=== PATIENT | male | born 1960 | race Caucasian/White ===

== ENCOUNTER → 2016-11-17 | Outpatient (CLI) | payer MEDICARE, MEDICAID ==
--- NOTE | 2016-11-17 10:13 | MRI ---
EXAM DESCRIPTION: MRI of the cervical spine CLINICAL HISTORY: Neck pain, multiple sclerosis COMPARISON: None. TECHNIQUE: Multiplanar MRI of the cervical spine was performed without contrast. GENERAL Cervical vertebral body alignment is unremarkable.Vertebral body heights are maintained. The craniocervical and atlantoaxial junctions are unremarkable. No aggressive osseous lesion. C2-3 No significant findings. C3-4 Mild bilateral neural foraminal narrowing, left greater than right from uncovertebral joint hypertrophy. 2 mm broad-based posterior disc protrusion. The midline diameter of the spinal canal is narrowed to 9 mm. C4-5 Mild left and moderate right neural foraminal narrowing from facet and uncovertebral joint hypertrophy. There is a 3 mm posterior disc bulge with cord contact anteriorly. The midline diameter of the spinal canal is narrowed to 8 mm. C5-6 Asymmetric to the right broad-based posterior disc osteophyte complex. Minimal right anterior cord contact. Negative for myelomalacia. The midline diameter of the spinal canal is mildly narrowed to 9 mm. Severe right and mild left neural foraminal narrowing. C6-7 3- 4 mm broad-based posterior disc osteophyte complex with cord flattening noted. The midline diameter of the spinal canal is narrowed to 9 mm. Severe right and mild left neural foraminal narrowing. C7-T1 No significant findings. CORD AND INTRASPINAL There is abnormal cord signal noted within the beatriz, medulla, cervical spinal cord posterior to C2, C3 and C7. IMPRESSION: Given technique differences the demyelinating plaque seen within the cervical spine are unchanged when compared to prior. Multilevel neural foraminal and spinal canal narrowing noted from C3-4 through C6-7 as described above. There is cord contact noted by disc material at C4-5, C5-6 and C6-7. Electronically signed by: Nicolas Brady MD 11/17/2016 10:11
== END ==
LOC: MRI 08:07
PROVIDERS: ATTEND Psychiatry & Neurology Neurology
DX: M50.220 Other cervical disc displacement, mid-cervical region, unspecified level (principal); M62.40 Contracture of muscle, unspecified site; G81.10 Spastic hemiplegia affecting unspecified side; G35 Multiple sclerosis

== ENCOUNTER 2016-12-24 18:14 | Emergency (ER) | payer MEDICARE, MEDICAID ==
--- NOTE | 2016-12-24 19:18 | ED.PDOC ---
History of Present Illness - General Chief Complaint: Respiratory Problem Stated Complaint: difficulty breathing Time Seen by Provider: 12/24/16 19:13 Source: RN notes reviewed, Vital Signs reviewed, EMS notes reviewed Exam Limitations: clinical condition - has multiple sclerosis - History of Present Illness Initial Comments: EMS was called on this 56 y/o male patient at [facility] with history of advanced ms with difficulty breathing and fever [id number] initially Timing/Duration: 1-3 hours Severity: moderate Improving Factors: nothing Worsening Factors: nothing Associated Symptoms: cough Allergies/Adverse Reactions: Allergies Buspirone Allergy (Verified 03/23/16 14:19) Home Medications: Ambulatory Orders Albuterol Sulfate Nebs [Proventil Nebs] 2.5 mg INH QID PRN 03/08/16 Baclofen 10 mg PO TID 03/08/16 Celecoxib [Celebrex] 100 mg PO BEDTIME 03/08/16 Cetirizine HCl [Zyrtec Childrens Allergy] 10 mg PO PRN 03/08/16 Doxepin HCl (Sleep) [Silenor] 3 mg PO BEDTIME 03/08/16 Furosemide [Lasix] 40 mg PO DAILY 03/08/16 Guaifenesin [Mucinex] 600 mg PO Q12H PRN 03/08/16 HYDROcodone 10MG/APAP 325MG [Bartlett 10/325] 1 - 2 ea PO .Q4H PRN 03/08/16 HYDROcodone 10MG/APAP 325MG [Bartlett 10/325] 2 tab PO BEDTIME 03/08/16 Ibuprofen 1 - 2 mg PO Q6H PRN 03/08/16 Magnesium Hydroxide [Milk Of Magnesia] 400 mg PO PRN PRN 03/08/16 Ondansetron HCl [Zofran] 4 mg PO Q4H PRN 03/08/16 Polyethylene Glycol 3350 [Miralax] 1 pack PO DAILY 03/08/16 Potassium Chloride [Potassium Chloride ER] 8 meq PO DAILY 03/08/16 Prochlorperazine Maleate [Compazine Tab] 10 mg PO Q4H PRN 03/08/16 Solifenacin Succinate [Vesicare] 5 mg PO DAILY 03/08/16 Tamsulosin HCl 0.4 mg PO DAILY 03/08/16 Acetaminophen [Arthritis Pain] 1,300 mg PO Q4H PRN 03/23/16 Cyanocobalamin [Vitamin B12] 1,000 mcg SL DAILY 12/24/16 Dexlansoprazole [Dexilant] 30 mg PO DAILY 12/24/16 Folic Acid [(None)] 1 mg PO DAILY 12/24/16 Magnesium Hydroxide [Milk Of Magnesia] 30 ml PO .DAILY ON Monday12/24/16 Oseltamivir [Tamiflu] 75 mg PO BID #10 cap 12/24/16 Sulfamethoxazole-Trimethoprim [Bactrim Ds 800-160 mg] 1 tab PO BID #30 tab 12/24 Zolpidem Tartrate [Ambien Cr] 12.5 mg PO BEDTIME 12/24/16 Review of Systems - Review of Systems Constitutional: States: fever EENTM: States: no symptoms reported Respiratory: States: cough Cardiology: States: no symptoms reported Gastrointestinal/Abdominal: States: no symptoms reported Genitourinary: States: other - chronic indwelling catheter Musculoskeletal: States: no symptoms reported Skin: States: no symptoms reported Neurological: States: other - history of ms Endocrine: States: no symptoms reported Hematologic/Lymphatic: States: no symptoms reported Past Medical History (General) - Patient Medical History Hx Seizures: No Hx Stroke: No Hx Dementia: No Hx Asthma: No Hx of COPD: No Hx Cardiac Disorders: No Hx Congestive Heart Failure: No Hx Pacemaker: No Hx Hypertension: No Hx Diabetes: No Hx MRSA: Yes MRSA Source:: Wound Surgical History: other - right shoulder - Vaccination History Hx Influenza Vaccination: - unknown Hx Pneumococcal Vaccination: - unknown - Social History Hx Tobacco Use: - unknown Hx Chewing Tobacco Use: Yes Hx Alcohol Use: No Hx Substance Use: No Hx Depression: Yes Hx Physical Abuse: No Hx Emotional Abuse: No - Activities of Daily Living [facility]isted [facility] (if applicable):: [facility] Grooming Ability: Total Assistance Eating (Feeding) Ability: Maximum Assistance Toileting Ability: Total Assistance Additional ED Patient Information: Patient bed bound and on motorized wheelchair Family Medical History - Family History Father Family History: Unknown Living Status: Hx Family Cancer: Yes - colon-dad;breast-mom Hx Family;Other: Multiple sclerosis-cousin Physical Exam - Physical Exam General Appearance: No apparent distress, Other - somnolent Ears, Nose, Throat: hearing grossly normal, normal ENT inspection, normal pharynx Neck: non-tender, full range of motion, supple Respiratory: chest non-tender, no respiratory distress, no accessory muscle use , decreased breath sounds Cardiovascular/Chest: normal peripheral pulses, regular rate, rhythm, no edema, no gallop, no murmur Peripheral Pulses: radial,right: 2+, radial,left: 2+ Gastrointestinal/Abdominal: normal bowel sounds, non tender, soft, no organomegaly Back Exam: normal inspection, no CVA tenderness, no vertebral tenderness Extremity: normal range of motion, non-tender, no pedal edema, no calf tenderness Neurologic: motor weakness - left side from ms Skin Exam: normal color, warm/dry Lymphatic: no adenopathy Progress - Results/Orders Results/Orders: 12/24/16 18:51 Chest,1 View [RAD] Stat 12/24/16 19:00 EKG STAT 12/24/16 19:22 LACTIC ACID Stat Laboratory Results WBC 8.7 K/mm3 (4.8-10.8) 12/24/16 18:51 RBC 5.33 M/mm3 (4.70-6.10) 12/24/16 18:51 Hgb 14.3 gm/dL (14.0-18.0) 12/24/16 18:51 Hct 42.9 % (42.0-52.0) 12/24/16 18:51 MCV 80.4 fl (80.0-94.0) 12/24/16 18:51 MCH 26.8 pg (27.0-31.0) L 12/24/16 18:51 MCHC 33.4 g/dL (33.0-37.0) 12/24/16 18:51 RDW 18.0 % (11.5-14.5) H 12/24/16 18:51 Plt Count 147 K/mm3 (130-400) 12/24/16 18:51 MPV 8.7 fl (7.40-10.4) 12/24/16 18:51 Absolute Neuts (auto) 8.10 K/uL (1.8-6.8) H 12/24/16 18:51 Absolute Lymphs (auto) 0.40 K/uL (1.0-3.4) L 12/24/16 18:51 Absolute Monos (auto) 0.10 K/uL (0.2-0.8) L 12/24/16 18:51 Absolute Eos (auto) 0.10 K/uL (0.0-0.4) 12/24/16 18:51 Absolute Basos (auto) 0.00 K/uL (0.0-0.1) 12/24/16 18:51 Neutrophils % 93.1 % (42.0-78.0) H 12/24/16 18:51 Lymphocytes % 4.6 % (20.0-50.0) L 12/24/16 18:51 Monocytes % 0.8 % (2.0-9.0) L 12/24/16 18:51 Eosinophils % 1.3 % (1.0-5.0) 12/24/16 18:51 Basophils % 0.2 % (0.0-2.0) 12/24/16 18:51 Sodium 139 mmol/L (135-145) 12/24/16 18:51 Potassium 4.3 mmol/L (3.6-5.0) 12/24/16 18:51 Chloride 104 mmol/L (101-111) 12/24/16 18:51 Carbon Dioxide 25 mmol/L (21-31) 12/24/16 18:51 Anion Gap 14.3 (12-18) 12/24/16 18:51 BUN 20 mg/dL (7-18) H 12/24/16 18:51 Creatinine 0.71 mg/dL (0.6-1.3) 12/24/16 18:51 BUN/Creatinine Ratio 28.2 (10-20) H 12/24/16 18:51 Random Glucose 101 mg/dL (70-105) 12/24/16 18:51 Serum Osmolality 280.3 mOsm/L (275-295) 12/24/16 18:51 Calcium 9.0 mg/dL (8.4-10.2) 12/24/16 18:51 Total Bilirubin 1.5 mg/dL (0.2-1.0) H 12/24/16 18:51 AST 54 IU/L (10-42) H 12/24/16 18:51 ALT 69 IU/L (10-60) H 12/24/16 18:51 Alkaline Phosphatase 120 IU/L (42-121) 12/24/16 18:51 Serum Total Protein 7.7 gm/dL (6.4-8.2) 12/24/16 18:51 Albumin 4.3 g/dl (3.2-5.5) 12/24/16 18:51 Globulin 3.4 gm/dL (2.3-3.5) 12/24/16 18:51 Albumin/Globulin Ratio 1.3 (1.1-1.9) 12/24/16 18:51 - EKG/XRAY/CT EKG: Sinus, Tachy - hr-130/minute Departure - Departure Clinical Impression: Acute viral syndrome, UTI (urinary tract infection) due to urinary indwelling Gonzalez catheter, History of multiple sclerosis Time of Disposition: 23:32 Disposition: Discharge to Home or Self Care Condition: Fair Departure Forms: ED Discharge - Pt. Copy, Patient Portal Self Enrollment Referrals: Luigi Lucas MD [Primary Care Provider] - 1-2 Weeks Prescriptions: Sulfamethoxazole-Trimethoprim [Bactrim Ds 800-160 mg] 1 tab PO BID #30 tab Oseltamivir [Tamiflu] 75 mg PO BID #10 cap Home Medications: Ambulatory Orders Albuterol Sulfate Nebs [Proventil Nebs] 2.5 mg INH QID PRN 03/08/16 Baclofen 10 mg PO TID 03/08/16 Celecoxib [Celebrex] 100 mg PO BEDTIME 03/08/16 Cetirizine HCl [Zyrtec Childrens Allergy] 10 mg PO PRN 03/08/16 Doxepin HCl (Sleep) [Silenor] 3 mg PO BEDTIME 03/08/16 Furosemide [Lasix] 40 mg PO DAILY 03/08/16 Guaifenesin [Mucinex] 600 mg PO Q12H PRN 03/08/16 HYDROcodone 10MG/APAP 325MG [Bartlett 10/325] 1 - 2 ea PO .Q4H PRN 03/08/16 HYDROcodone 10MG/APAP 325MG [Bartlett 10/325] 2 tab PO BEDTIME 03/08/16 Ibuprofen 1 - 2 mg PO Q6H PRN 03/08/16 Magnesium Hydroxide [Milk Of Magnesia] 400 mg PO PRN PRN 03/08/16 Ondansetron HCl [Zofran] 4 mg PO Q4H PRN 03/08/16 Polyethylene Glycol 3350 [Miralax] 1 pack PO DAILY 03/08/16 Potassium Chloride [Potassium Chloride ER] 8 meq PO DAILY 03/08/16 Prochlorperazine Maleate [Compazine Tab] 10 mg PO Q4H PRN 03/08/16 Solifenacin Succinate [Vesicare] 5 mg PO DAILY 03/08/16 Tamsulosin HCl 0.4 mg PO DAILY 03/08/16 Acetaminophen [Arthritis Pain] 1,300 mg PO Q4H PRN 03/23/16 Cyanocobalamin [Vitamin B12] 1,000 mcg SL DAILY 12/24/16 Dexlansoprazole [Dexilant] 30 mg PO DAILY 12/24/16 Folic Acid [(None)] 1 mg PO DAILY 12/24/16 Magnesium Hydroxide [Milk Of Magnesia] 30 ml PO .DAILY ON Monday12/24/16 Oseltamivir [Tamiflu] 75 mg PO BID #10 cap 12/24/16 Sulfamethoxazole-Trimethoprim [Bactrim Ds 800-160 mg] 1 tab PO BID #30 tab 12/24 Zolpidem Tartrate [Ambien Cr] 12.5 mg PO BEDTIME 12/24/16 Additional Instructions: RETURN TO EMERGENCY ROOM NEEDED
[2016-12-24] MEDS ORDERED: SODIUM CHLORIDE 0.9% 1000ML 1,000 ML IVS PRN (19:24)
[2016-12-24 19:47] VITALS: O2SAT 95
--- NOTE | 2016-12-24 21:11 | RAD ---
EXAM DESCRIPTION: Chest,1 View CLINICAL HISTORY: 56 years Male fever COMPARISON: None. FINDINGS: The patient is tilted slightly towards the right.The cardiomediastinal silhouette appears unremarkable. Mild atelectasis or infiltrate at the right lung base.No pleural effusions.No pneumothorax. IMPRESSION: Mild atelectasis or infiltrate at the right lung base Electronically signed by: Eduard Hong MD 12/24/2016 7:51 PM [employer]
[2016-12-24] MEDS ORDERED: OSELTAMIVIR 75 MG CAP PO ONE (21:18)
[2016-12-24] MEDS ORDERED: MEROPENEM 500 MG in SODIUM CHL 0.9% 50ML MIN-BAG+ 50 ML IVPB ONE (21:31)
[2016-12-24] MEDS ORDERED: MEROPENEM 500 MG VIAL IVPB ONE (22:15)
[2016-12-24] MEDS ORDERED: SODIUM CHL 0.9% 50ML MIN-BAG+ 50 ML IVPB ONE (22:15)
[2016-12-25 02:22] VITALS: BP 114/55; TEMP 99.4
--- NOTE | 2017-01-04 13:44 | RAD ---
EXAM DESCRIPTION: Chest,1 View CLINICAL HISTORY: 56 years Male fever COMPARISON: None. FINDINGS: The patient is tilted slightly towards the right.The cardiomediastinal silhouette appears unremarkable. Mild atelectasis or infiltrate at the right lung base.No pleural effusions.No pneumothorax. IMPRESSION: Mild atelectasis or infiltrate at the right lung base Electronically signed by: Eduard Hong MD 12/24/2016 7:51 PM [employer]
--- NOTE | 2017-01-09 00:02 | RAD ---
EXAM DESCRIPTION: Chest,1 View CLINICAL HISTORY: 56 years Male fever COMPARISON: None. FINDINGS: The patient is tilted slightly towards the right.The cardiomediastinal silhouette appears unremarkable. Mild atelectasis or infiltrate at the right lung base.No pleural effusions.No pneumothorax. IMPRESSION: Mild atelectasis or infiltrate at the right lung base Electronically signed by: Eduard Hong MD 12/24/2016 7:51 PM [employer]
== END 2016-12-24 23:55 | disposition home or self-care (01) ==
LOC: ER 18:14
DX: T83.518A Infection and inflammatory reaction due to other urinary catheter, initial encounter (principal); B34.9 Viral infection, unspecified; F32.9 Major depressive disorder, single episode, unspecified; G35 Multiple sclerosis; Z88.8 Allergy status to other drugs, medicaments and biological substances; Z79.899 Other long term (current) drug therapy; Z86.14 Personal history of Methicillin resistant Staphylococcus aureus infection; Z87.891 Personal history of nicotine dependence
CPT/HCPCS: 71010; 80053; 81001; 83605; 85025; 87086; 87088; 87186; 87502; 93005; J2185; J7030; J7050

== ENCOUNTER → 2017-01-17 | Outpatient (CLI) | payer MEDICARE, OTHER | END | disposition home or self-care (01) | LOC: GMAM 11:18 | PROVIDERS: ATTEND Family Medicine | DX: M25.579 Pain in unspecified ankle and joints of unspecified foot (principal) ==

== ENCOUNTER → 2017-01-23 | Outpatient (CLI) | payer MEDICARE, MEDICAID ==
--- NOTE | 2017-01-23 09:50 | MRI ---
Study: MRI of the Left Foot. Indication: FOOT PAIN Technique: Multiplanar, multi sequence MRI of the left foot was obtained without intravenous contrast. Comparison: Radiographs January 17, 2017. Findings: Moderate subcutaneous edema dorsum of the forefoot and midfoot with a suspected septated hematoma superficial to the fourth and fifth metatarsal shafts measuring up to 28 mm transverse by 11 mm craniocaudal by 20 mm AP. There is a large contusion of the lateral margin of the cuboid with mild trabecular fracturing. Mild myositis throughout the deep plantar musculature of the forefoot. Mild tendinosis. Peroneus brevis tendinosis with mild longitudinal fissuring distally. No transection. Remaining visualized distal portions of the flexor and extensor tendons as well as the plantar fascia intact. Lisfranc ligament intact. Moderate osteoarthritis first MTP joint with mild changes first IP joint. Remote/healed fracture third metatarsal shaft/neck. Impression: Contusion/trabecular fracturing of the lateral margin of the cuboid without displaced fracture. Subcutaneous edema of the foot with small subcutaneous hematoma laterally. Additional findings as above. Electronically signed by: Donovan Quiroga MD 01/23/2017 9:48 AM CDT
== END ==
LOC: MRI 08:20
PROVIDERS: ATTEND Family Medicine
DX: M79.672 Pain in left foot (principal); S90.32XA Contusion of left foot, initial encounter; M19.072 Primary osteoarthritis, left ankle and foot

== ENCOUNTER → 2017-02-06 | Outpatient (CLI) | payer MEDICARE, MEDICAID ==
--- NOTE | 2017-02-06 10:01 | RAD ---
EXAM DESCRIPTION: Foot,Left 3 Views CLINICAL HISTORY: 56 years Male, PAIN IN LEFT FOOT COMPARISON: None. FINDINGS: 3 views of the left foot show no acute fracture or malalignment. There is an old healed third metatarsal fracture. No radiopaque foreign body or soft tissue gas. The joint spaces are fairly well-maintained. Best seen on the AP view is a small lytic lesion in the medial cuneiform adjacent to the first TMT joint, nonspecific. IMPRESSION: Old healed third metatarsal fracture, but no acute left foot abnormality. Small lytic lesion in the medial cuneiform, nonspecific. Although atypical location, the possibility of gout related arthritis should be considered. Electronically signed by: Sukumar Engle MD 02/06/2017 10:00 AM CDT
== END | disposition home or self-care (01) ==
LOC: RAD 07:58
PROVIDERS: ATTEND Orthopaedic Surgery
DX: M79.672 Pain in left foot (principal)

== ENCOUNTER → 2017-02-27 | Outpatient (CLI) | payer MEDICARE, MEDICAID | END | disposition home or self-care (01) | LOC: GMAM 17:22 | PROVIDERS: ATTEND Family Medicine | DX: D53.9 Nutritional anemia, unspecified (principal) ==

== ENCOUNTER → 2017-03-23 | Outpatient (CLI) | payer MEDICARE, OTHER | END | disposition home or self-care (01) | LOC: GMAM 18:12 | PROVIDERS: ATTEND Family Medicine | DX: M06.9 Rheumatoid arthritis, unspecified (principal) ==

== ENCOUNTER → 2017-09-12 | Outpatient (CLI) | payer MEDICARE, OTHER | LOC: GMAM 16:42 | PROVIDERS: ATTEND Family Medicine | DX: R82.90 Unspecified abnormal findings in urine (principal) ==

== ENCOUNTER → 2017-09-25 | Outpatient (CLI) | payer MEDICARE, OTHER | END | disposition home or self-care (01) | LOC: YCFC.O 08:55 | PROVIDERS: ATTEND Anesthesiology Pain Medicine | DX: Z79.891 Long term (current) use of opiate analgesic (principal) ==

== ENCOUNTER → 2017-10-02 | Outpatient (CLI) | payer MEDICARE, OTHER ==
--- NOTE | 2017-10-03 09:47 | MRI ---
Study: MRI of the Right Shoulder. Indication: SHOULDER PAIN Technique: Multiplanar, multi sequence MRI of the right shoulder was obtained without intravenous contrast. Comparison: July 23, 2013. Findings: Mild to moderate hypertrophic AC joint osteoarthritis. Mild type II acromion with mild lateral downsloping. Trace subacromial/subdeltoid bursal fluid. Supraspinatus and infraspinatus tendinosis noted with full-thickness tearing of the anterior two thirds of the supraspinatus tendon insertion. Involved area measures 12 mm AP by 12 mm transverse. Subscapularis and teres minor tendons intact. Rotator cuff musculature normal without atrophy, fatty infiltration, or intramuscular edema. Long head biceps tendon intact. Circumferential labral truncation noted. Undersurface tearing throughout the base of the superior labrum noted. No acute fracture or advanced glenohumeral joint osteoarthritis. Impression: Supraspinatus and infraspinatus tendinosis with full-thickness tearing of the anterior two thirds of the infraspinatus tendon insertion. Circumferential labral truncation. Undersurface tearing throughout the base of the superior labrum noted. Mild to moderate hypertrophic AC joint osteoarthritis. Electronically signed by: Donovan Quiroga MD 10/03/2017 9:46 AM [facility]
== END | disposition home or self-care (01) ==
LOC: MRI 13:14
PROVIDERS: ATTEND Family Medicine
DX: M25.511 Pain in right shoulder (principal)

== ENCOUNTER → 2017-10-16 | Outpatient (CLI) | payer MEDICARE, OTHER ==
--- NOTE | 2017-10-16 14:21 | RAD ---
EXAM DESCRIPTION: Right shoulder, 4 radiographs CLINICAL HISTORY: PAIN FINDINGS/ IMPRESSION: Mild acromioclavicular osteoarthritis. No separation No fracture or focal osteochondral lesion. No advanced glenohumeral osteoarthritis. Normal mineralization Electronically signed by: Luigi Edwards MD 10/16/2017 2:20 PM [facility]
== END | disposition home or self-care (01) ==
LOC: RAD 08:42
PROVIDERS: ATTEND Orthopaedic Surgery
DX: M25.511 Pain in right shoulder (principal)

== ENCOUNTER 2017-10-29 12:10 | Inpatient (IN) | payer MEDICARE, OTHER ==
[2017-10-29] MEDS ORDERED: CEFEPIME 2 GM VIAL IVPB ONE (12:11)
[2017-10-29] MEDS ORDERED: CEFEPIME 2 GM in SODIUM CHL 0.9% 50ML MIN-BAG+ 50 ML IVPB ONE (13:19)
[2017-10-29] MEDS ORDERED: SODIUM CHLORIDE 0.9% 1000ML 1,000 ML IVS ONE (13:19)
[2017-10-29] MEDS ORDERED: predniSONE 20 MG TAB PO ONE (13:19)
[2017-10-29] MEDS ORDERED: IBUPROFEN 200 MG TAB PO ONE (13:20)
--- NOTE | 2017-10-29 13:38 | RAD ---
Procedure: XR CHEST 1 VIEW Exam Date: 10/29/2017 12:28 PM [employer] Ordering Provider: Daquan Lucas Clinical Indication: Tachycardia, hypotension Comparison: None Findings: There is slight asymmetric volume loss in the right lung and right basilar subsegmental atelectasis. No pleural effusion or pneumothorax is present. The heart size is normal. Impression: Right lung volume loss and right basilar subsegmental atelectasis. Electronically signed by: Carlo Hankins MD 10/29/2017 1:37 PM [employer]
[2017-10-29] MEDS ORDERED: SODIUM CHL 0.9% 100ML MINI-BAG 0 ML IVPB ONE (13:41)
[2017-10-29] MEDS ORDERED: SODIUM CHL 0.9% 50ML MIN-BAG+ 50 ML IVPB ONE (13:42)
--- NOTE | 2017-10-29 14:03 | ED.PDOC ---
History of Present Illness - General Chief Complaint: Blood Pressure Problem Stated Complaint: low BP,tachycardic Time Seen by Provider: 10/29/17 12:28 Source: patient, family Exam Limitations: no limitations - History of Present Illness Initial Comments: the patient is a 57-year-old male presenting to the emergency room secondary to a feeling of fatigue and weakness starting overnight. He is not short of breath. He is having generalized weakness. He feels diaphoretic. He is having some mild nausea but no vomiting. He does have a long-standing indwelling Gonzalez catheter. He does have a history of multiple sclerosis with chronic changes. He also does have a history of some chronic hyperbilirubinemia due to a questionable source. The patient was found to be tachycardic in the 130s to 140s along with mildly hypotensive at 90s over 50s. Blood pressures have improved with a liter of IV fluids given by EMS. The patient has a low-grade fever. No chest pain or shortness of breath. No new leg swelling. He also has a history of chronic elevated d-dimer. Timing/Duration: unsure Severity: moderate Improving Factors: nothing Worsening Factors: nothing Associated Symptoms: diaphoresis, fever/chills, loss of appetite, malaise, weakness Allergies/Adverse Reactions: Allergies Buspirone Allergy (Verified 03/23/16 14:19) Home Medications: Ambulatory Orders Albuterol Sulfate Nebs [Proventil Nebs] 2.5 mg INH QID PRN 03/08/16 Baclofen 10 mg PO TID 03/08/16 Celecoxib [Celebrex] 200 mg PO BEDTIME 03/08/16 Cetirizine HCl [Zyrtec Childrens Allergy] 10 mg PO PRN 03/08/16 Doxepin HCl (Sleep) [Silenor] 3 mg PO BEDTIME 03/08/16 Furosemide [Lasix] 40 mg PO DAILY 03/08/16 Guaifenesin [Mucinex] 600 mg PO Q12H PRN 03/08/16 HYDROcodone 10MG/APAP 325MG [Burns 10/325] 1 - 2 ea PO .Q4H PRN 03/08/16 HYDROcodone 10MG/APAP 325MG [Burns 10/325] 2 tab PO DAILY 03/08/16 Ibuprofen 1 - 2 mg PO Q6H PRN 03/08/16 Magnesium Hydroxide [Milk Of Magnesia] 400 mg PO PRN PRN 03/08/16 Ondansetron HCl [Zofran] 4 mg PO Q4H PRN 03/08/16 Polyethylene Glycol 3350 [Miralax] 1 pack PO DAILY 03/08/16 Potassium Chloride [Potassium Chloride ER] 8 meq PO DAILY 03/08/16 Solifenacin Succinate [Vesicare] 5 mg PO DAILY 03/08/16 Tamsulosin HCl 0.4 mg PO DAILY 03/08/16 Acetaminophen [Arthritis Pain] 1,300 mg PO Q4H PRN 03/23/16 Cyanocobalamin [Vitamin B12] 1,000 mcg SL DAILY 12/24/16 Dexlansoprazole [Dexilant] 30 mg PO DAILY 12/24/16 Folic Acid [(None)] 1 mg PO DAILY 12/24/16 Magnesium Hydroxide [Milk Of Magnesia] 30 ml PO .DAILY ON Monday12/24/16 Cyclobenzaprine HCl 10 mg PO TID PRN 10/29/17 Morphine Sulfate [Morphine Sulfate ER] 15 mg PO DAILY 10/29/17 Review of Systems - Review of Systems Constitutional: States: fever, malaise, weakness EENTM: States: no symptoms reported Respiratory: States: short of breath - ainly with exertion Cardiology: States: no symptoms reported Gastrointestinal/Abdominal: States: nausea - mild Genitourinary: States: other - discomfort from his chronic indwelling Gonzalez catheter Musculoskeletal: States: muscle stiffness Skin: States: no symptoms reported Neurological: States: other - hronic changes only Endocrine: States: no symptoms reported All other Systems: No Change from Baseline Past Medical History (General) - Patient Medical History Hx Seizures: No Hx Stroke: No Hx Dementia: No Hx Asthma: No Hx of COPD: No Hx Cardiac Disorders: No Hx Congestive Heart Failure: No Hx Pacemaker: No Hx Hypertension: No Hx Diabetes: No Hx MRSA: Yes MRSA Source:: Wound Surgical History: no surgical history - Vaccination History Hx Influenza Vaccination: - unknown Hx Pneumococcal Vaccination: Yes - Social History Hx Tobacco Use: No Hx Chewing Tobacco Use: Yes Hx Alcohol Use: No Hx Substance Use: No Hx Depression: Yes Hx Physical Abuse: No Hx Emotional Abuse: No - Activities of Daily Living Jail/Assisted Living (if applicable):: [facility] Family Medical History - Family History Father Family History: Unknown Living Status: Hx Family Cancer: Yes - colon-dad;breast-mom Hx Family;Other: Multiple sclerosis-cousin Physical Exam - Physical Exam General Appearance: Alert, Frail, Other - mildly diaphoretic Eye Exam: bilateral normal - poor eye contact Ears, Nose, Throat: hearing grossly normal, normal ENT inspection, normal pharynx Neck: full range of motion, supple Respiratory: lungs clear, normal breath sounds, no respiratory distress, no accessory muscle use, other - mildly tachypnea with a fever Cardiovascular/Chest: normal peripheral pulses, no edema, tachycardia - inus tachycardia based on telemetry monitoring Peripheral Pulses: radial,right: 2+, radial,left: 2+, dorsalis pedis,right: 2+, dorsalis pedis,left: 2+ Gastrointestinal/Abdominal: non tender, soft Rectal Exam: deferred Back Exam: no CVA tenderness, no vertebral tenderness Extremity: normal capillary refill, pedal edema - trace to bilateral lower extremities, other - ultiple chronic changes from his MS and reported strokes. Primarily left sided weakness. He does seem to have difficulty controlling his posture as well. Neurologic: support services tech II-XII nml as tested, alert, oriented x 3 Skin Exam: pallor Comments: Vital Signs - 24 hr 10/29/17 10/29/17 12:27 13:10 Temperature 100.1 F H Pulse Rate [ 135 H 112 H Left Brachial] Respiratory 20 17 Rate Blood Pressure 120/64 108/65 [Left Arm] O2 Sat by Pulse 95 96 Oximetry Progress - Progress Progress: 10/29/17 14:07 the patient is a 57-year-old male presenting to emergency room secondary to what is most likely early urosepsis. He has had multiple recurrent infections due to an indwelling Gonzalez catheter. His last culture grew out Proteus and he has been started on cefepime based on the culture result. He has received a liter of IV fluids already. His heart rate has improved. He has also received some ibuprofen for the fever. He received 40 mg of prednisone orally for the possibility of sepsis as well as his history of multiple sclerosis. He does have a mildly elevated bilirubin which is apparently a chronic finding with this patient. He also has a chronically elevated d-dimer again which is a long-standing finding with this patient. No new evidence of any shortness of breath. No new leg swelling or pain. He received a CT angiogram a year or 2 ago secondary to the elevated d-dimer and it was negative. If clinical condition changes or fails to improve, then a repeat can be done. flu test is negative. No other source of infection has been found. - Results/Orders Results/Orders: Laboratory Tests 10/29/17 10/29/17 10/29/17 12:42 12:48 12:48 WBC 11.3 H RBC 5.45 Hgb 14.6 Hct 43.5 MCV 79.9 L MCH 26.7 L MCHC 33.6 RDW 17.6 H Plt Count 166 MPV 8.3 Absolute Neuts (auto) 11.00 H Absolute Lymphs (auto) 0.20 L Absolute Monos (auto) 0.10 L Absolute Eos (auto) 0.00 Absolute Basos (auto) 0.00 Neutrophils % 97.5 H Lymphocytes % 1.4 L Monocytes % 0.7 L Eosinophils % 0.1 L Basophils % 0.3 D-Dimer, Quantitative Sodium 140 Potassium 3.6 Chloride 107 Carbon Dioxide 23 Anion Gap 13.6 BUN 21 H Creatinine 0.64 BUN/Creatinine Ratio 32.8 H Random Glucose 110 H Serum Osmolality 283.0 Lactic Acid Calcium 8.7 Magnesium 1.8 Total Bilirubin 3.1 H* AST 31 ALT 45 Alkaline Phosphatase 120 Creatine Kinase 53 CK-MB (CK-2) 1.2 CK-MB (CK-2) % Not Reportable Troponin I < 0.02 B-Natriuretic Peptide 5.7 Serum Total Protein 7.3 Albumin 4.2 Globulin 3.1 Albumin/Globulin Ratio 1.4 Urine Color Yellow Urine Appearance Cloudy Urine pH 5.5 Ur Specific [place] 1.015 Urine Protein Negative Urine Glucose (UA) Negative Urine Ketones Negative Urine Blood Moderate H Urine Nitrite Positive H Urine Bilirubin Small H Urine Urobilinogen 2.0 H Ur Leukocyte Esterase Small H Urine RBC 10-20 H Urine WBC Tntc H Ur Epithelial Cells 0 Urine Bacteria 4+ H Urine Mucus Small 10/29/17 10/29/17 12:48 13:23 WBC RBC Hgb Hct MCV MCH MCHC RDW Plt Count MPV Absolute Neuts (auto) Absolute Lymphs (auto) Absolute Monos (auto) Absolute Eos (auto) Absolute Basos (auto) Neutrophils % Lymphocytes % Monocytes % Eosinophils % Basophils % D-Dimer, Quantitative 983 H* Sodium Potassium Chloride Carbon Dioxide Anion Gap BUN Creatinine BUN/Creatinine Ratio Random Glucose Serum Osmolality Lactic Acid 1.5 Calcium Magnesium Total Bilirubin AST ALT Alkaline Phosphatase Creatine Kinase CK-MB (CK-2) CK-MB (CK-2) % Troponin I B-Natriuretic Peptide Serum Total Protein Albumin Globulin Albumin/Globulin Ratio Urine Color Urine Appearance Urine pH Ur Specific [place] Urine Protein Urine Glucose (UA) Urine Ketones Urine Blood Urine Nitrite Urine Bilirubin Urine Urobilinogen Ur Leukocyte Esterase Urine RBC Urine WBC Ur Epithelial Cells Urine Bacteria Urine Mucus EKG shows sinus tachycardia rate 120 bpm. Normal axis. Normal R-wave progression. Normal QT interval. No definitive ST segment changes concerning for ischemia. Chest x-ray shows some rotation but no definitive infiltrate. No pneumothorax. No evidence of fluid overload. Departure - Departure Clinical Impression: UTI (urinary tract infection) due to urinary indwelling Gonzalez catheter Qualifiers: Indwelling urinary catheter type: indwelling urethral catheter Encounter type: initial encounter Qualified Code(s): T83.511A - Infection and inflammatory reaction due to indwelling urethral catheter, initial encounter; N39.0 - Urinary tract infection, site not specified Sepsis Qualifiers: Sepsis type: sepsis due to unspecified organism Qualified Code(s): A41.9 - Sepsis, unspecified organism Disposition: Admit Patient Referrals: Luigi Lucas MD [Primary Care Provider] - 1-2 Weeks Home Medications: Ambulatory Orders Albuterol Sulfate Nebs [Proventil Nebs] 2.5 mg INH QID PRN 03/08/16 Baclofen 10 mg PO TID 03/08/16 Celecoxib [Celebrex] 200 mg PO BEDTIME 03/08/16 Cetirizine HCl [Zyrtec Childrens Allergy] 10 mg PO PRN 03/08/16 Doxepin HCl (Sleep) [Silenor] 3 mg PO BEDTIME 03/08/16 Furosemide [Lasix] 40 mg PO DAILY 03/08/16 Guaifenesin [Mucinex] 600 mg PO Q12H PRN 03/08/16 HYDROcodone 10MG/APAP 325MG [Burns 10/325] 1 - 2 ea PO .Q4H PRN 03/08/16 HYDROcodone 10MG/APAP 325MG [Burns 10/325] 2 tab PO DAILY 03/08/16 Ibuprofen 1 - 2 mg PO Q6H PRN 03/08/16 Magnesium Hydroxide [Milk Of Magnesia] 400 mg PO PRN PRN 03/08/16 Ondansetron HCl [Zofran] 4 mg PO Q4H PRN 03/08/16 Polyethylene Glycol 3350 [Miralax] 1 pack PO DAILY 03/08/16 Potassium Chloride [Potassium Chloride ER] 8 meq PO DAILY 03/08/16 Solifenacin Succinate [Vesicare] 5 mg PO DAILY 03/08/16 Tamsulosin HCl 0.4 mg PO DAILY 03/08/16 Acetaminophen [Arthritis Pain] 1,300 mg PO Q4H PRN 03/23/16 Cyanocobalamin [Vitamin B12] 1,000 mcg SL DAILY 12/24/16 Dexlansoprazole [Dexilant] 30 mg PO DAILY 12/24/16 Folic Acid [(None)] 1 mg PO DAILY 12/24/16 Magnesium Hydroxide [Milk Of Magnesia] 30 ml PO .DAILY ON Monday12/24/16 Cyclobenzaprine HCl 10 mg PO TID PRN 10/29/17 Morphine Sulfate [Morphine Sulfate ER] 15 mg PO DAILY 10/29/17 Decision To Admit - Decistion To Admit Decision to Admit Reason: Medical Nature Decision to Admit Date: 10/29/17 Decision to Admit Time: 14:11
--- NOTE | 2017-10-29 15:10 | HP ---
SUPERVISING PHYSICIAN: Elton Jasso MD CHIEF COMPLAINT: Blood pressure problems, low blood pressure and tachycardia. HISTORY OF PRESENT ILLNESS: Mr. Phillips is a 57-year-old, male who presented to the Emergency Room secondary to feeling fatigue and weakness that started overnight. He is not short of breath. He is having generalized weakness and feeling diaphoretic. He is having some mild nausea with no vomiting. He does have a longstanding indwelling Gonzalez catheter. He does have a history of multiple sclerosis with chronic changes. He also does have a history of some chronic hyperbilirubinemia due to questionable sources. In the Emergency Room, the patient was tachycardic running in rates 130 to 140s and mildly hypotensive with systolic pressures 90s and diastolics in the 50s. After a liter of IV fluids in the Emergency Room, the blood pressure did improve as well as the tachycardia. The patient had a low grade fever. He denied chest pain, but did have some shortness of breath. He denies new leg swelling and states that he also had a history of a chronic elevated D-dimer. PAST MEDICAL HISTORY: 1. Congestive heart failure, unknown etiology. 2. Benign prostatic hypertrophy. 3. Multiple pressure sores. 4. Constipation. 5. Chronic insomnia. 6. Muscular sclerosis. 7. Cerebrovascular accident. 8. Depression. 9. Elevated liver function tests. PAST SURGICAL HISTORY: 1. Cholecystectomy. 2. I&D of elbow for bursitis. CURRENT MEDICATIONS: 1. Albuterol sulfated nebulized 2.5 mg inhaled q.i.d. p.r.n. 2. Baclofen 10 mg p.o. t.i.d. 3. Celebrex 20 mg p.o. at bedtime. 4. Zyrtec 10 mg p.o. p.r.n. 5. Doxepin 3 mg p.o. at bedtime. 6. Lasix 40 mg p.o. daily. 7. Guaifenesin 600 mg p.o. q.12h. p.r.n. 8. Hydrocodone 10 mg 1 to 2 each p.o. q.4h. p.r.n. 9. Hydrocodone 10 mg/325 mg 2 p.o. daily. 10. Ibuprofen 200 to 400 mg p.o. q.6h. p.r.n. 11. Milk of Magnesia 400 mg p.o. p.r.n. 12. Zofran 4 mg p.o. q.4h. p.r.n. 13. MiraLAX 17 grams p.o. daily. 14. Potassium chloride 8 mEq p.o. daily. 15. VESIcare 5 mg p.o. daily. 16. Tamsulosin 0.4 mg p.o. daily. 17. Acetaminophen 1000 mg p.o. q.4h. p.r.n. 18. Vitamin B12 1000 mcg sublingual daily. 19. Dexilant 30 mg p.o. daily. 20. Folic acid 1 mg p.o. daily. 21. Cyclobenzaprine 10 mg p.o. t.i.d. p.r.n. 22. Morphine sulfate 15 mg p.o. daily. ALLERGIES: NO KNOWN ALLERGIES. SOCIAL HISTORY: He is disabled. He lives at [facility]. He denies alcohol, tobacco or illicit drug use. He is . REVIEW OF SYSTEMS: CONSTITUTIONAL: Fever, malaise, weakness. EENT: No symptoms reported. RESPIRATORY: Shortness of breath, mainly with exertion. CARDIOVASCULAR: No symptoms reported. GASTROINTESTINAL: Nausea, mild. No diarrhea, constipation or abdominal pain. GENITOURINARY: Discomfort from his chronic indwelling Gonzalez catheter. MUSCULOSKELETAL: Muscle stiffness. SKIN: No symptoms reported. NEUROLOGIC: Chronic changes only. ENDOCRINE: No symptoms reported. PHYSICAL EXAMINATION: VITAL SIGNS: Temperature 97.9, temporal. Pulse 97. Blood pressure 111/67. Respiratory rate 18. Oxygen saturation 97% on room air. GENERAL: Alert, frail, mildly diaphoretic. HEENT: Pupils are equal, round, and reactive to light. Extraocular movements are intact and full. Gross hearing is normal. Normal oropharynx. NECK: Full range of motion. Soft, supple. No lymphadenopathy. RESPIRATORY: Respiratory effort is even and unlabored. Breath sounds are clear to auscultation bilaterally with no rales, rhonchi or wheezing. CARDIOVASCULAR: Normal S1, S2. Regular rate and rhythm. No murmurs, clicks or rubs. No edema noted. Peripheral pulses are 2+, radial and dorsalis pedis bilaterally. GASTROINTESTINAL: Abdomen soft, nontender. Bowel sounds active in all 4 quadrants. No masses palpated. EXTREMITIES: Normal capillary refill. There is mild pedal edema bilaterally. He has multiple chronic changes from the MS and reported strokes, primary left sided weakness. He does have some difficulty controlling his posture as well. NEUROLOGIC: He is alert and oriented times three. Mood and affect are normal. SKIN: Pale. He does have bed sores on his buttocks, stage 2. LABORATORY: WBC 11.3, hemoglobin 14.6, hematocrit 43.5, platelet count 166. D- dimer 983. Sodium 140, potassium 3.6, chloride 107, carbon dioxide 23, BUN 21, creatinine 0.64. Glucose 110, calcium 8.7, magnesium 1.8, total bilirubin 3.1, AST 31, ALT 45, alkaline phosphatase 120. CK 53, CK-MB 1.2, troponin I less than 0.02. BNP 5.7. Total protein 7.3, albumin 4.2. Urine is yellow, appearance cloudy, pH 5.5, specific gravity 1.015, protein negative, glucose negative, ketones negative, blood moderate, nitrites positive, bilirubin small, urobilinogen 2.0, leukocyte esterase small, RBCs 10 to 20, WBCs too numerous to count, epithelial cells 0, bacteria 4+, mucus small amount. MICROBIOLOGY: Blood cultures were drawn and sent to the lab. Urine culture is pending. Nasal swab for MRSA was done in the Emergency Room. ASSESSMENT: 1. Urinary tract infection due to indwelling Gonzalez catheter. 2. Urosepsis due to unspecific organism. 3. History of multiple sclerosis, primary left upper and left lower extremities. PLAN: The patient will be admitted to the hospital for further evaluation and workup regarding his urinary tract infection and probable sepsis. He will be continued on the antibiotics and followed closely. Until discharge, we will continue to monitor the patient closely and treat appropriately. We will recheck his CBC and metabolic panel in the morning. The patient has a history of hemolytic anemia sedimentation to use of Bactrim and doxycycline. It would be strongly advised to avoid these two antibiotics. Elton Jasso MD, is the physician collaborator ammunition supervisor, available by telephone. #[id number] [facility]ALTH[facility]as[facility]
[2017-10-29] MEDS ORDERED: ACETAMINOPHEN 325 MG TAB PO PRN (18:46)
[2017-10-29] MEDS ORDERED: IBUPROFEN 200 MG TAB PO PRN (18:50)
[2017-10-29] MEDS ORDERED: HYDROcodone 10MG/APAP 325MG 1 EA TAB PO PRN (18:50)
[2017-10-29] MEDS ORDERED: ONDANSETRON 4 MG TAB PO PRN (18:50)
[2017-10-29] MEDS ORDERED: guaiFENesin ER TAB 600 MG TAB PO PRN (18:50)
[2017-10-29] MEDS ORDERED: ACETAMINOPHEN 1300 MG PO PRN (18:50)
[2017-10-29] MEDS ORDERED: IV SET AND CAP CHANGE INJ INJ SCH (19:00)
[2017-10-29] MEDS ORDERED: ENOXAPARIN SODIUM 30 MG/0.3 ML SYG SUBCU SCH (19:00)
[2017-10-29] MEDS ORDERED: [UNRECOGNIZED DRUG - REMARK] PO SCH (19:00)
[2017-10-29] MEDS ORDERED: CEFEPIME 1 GM in SODIUM CHLORIDE 0.9% 50ML 50 ML IVPB SCH (19:00)
[2017-10-29] MEDS ORDERED: ENOXAPARIN SODIUM 40 MG/0.4 ML SYG SUBCU ONE (19:30)
[2017-10-29] MEDS: SODIUM CHLORIDE 0.9% 1000ML 1,000 ML IVS SCH (19:42)
[2017-10-29] MEDS: DOXEPIN HCL 3 MG PO SCH (19:54)
[2017-10-29] MEDS: CELECOXIB 100 MG CAP PO SCH (21:12)
[2017-10-29] MEDS: BACLOFEN 10 MG TAB PO SCH (21:12)
[2017-10-30] MEDS ORDERED: CEFEPIME 1 GM in SODIUM CHLORIDE 0.9% 50ML 50 ML IVPB SCH (02:00)
[2017-10-30] MEDS ORDERED: SODIUM CHL 0.9% 50ML MIN-BAG+ 50 ML IVPB ONE ×2 (02:03→16:10)
[2017-10-30] MEDS ORDERED: CEFEPIME 2 GM VIAL IVPB ONE ×2 (02:03→16:10)
[2017-10-30] MEDS ORDERED: SOLIFENACIN SUCCINATE 5 MG PO SCH (09:00)
[2017-10-30] MEDS ORDERED: DEXLANSOPRAZOLE 30 MG PO SCH (09:00)
[2017-10-30] MEDS ORDERED: CETIRIZINE HCL 10 MG TAB PO PRN (09:27)
[2017-10-30] MEDS: BACLOFEN 10 MG TAB PO SCH ×3 (10:14→20:46)
[2017-10-30] MEDS: HYDROcodone 10MG/APAP 325MG 1 EA TAB PO SCH (10:14)
[2017-10-30] MEDS: FUROSEMIDE 40 MG TAB PO SCH (10:14)
[2017-10-30] MEDS: POTASSIUM CHLORIDE 8 MEQ TAB PO SCH (10:14)
[2017-10-30] MEDS: CYANOCOBALAMIN 1,000 MCG TAB PO SCH (10:15)
[2017-10-30] MEDS: MORPHINE ER 15 MG TAB PO SCH (10:15)
[2017-10-30] MEDS: OMEPRAZOLE CAP 20 MG CAP PO SCH (10:15)
[2017-10-30] MEDS: POLYETHYLENE GLYCOL 3350 17 GM PCKT PO SCH (10:15)
[2017-10-30] MEDS: TAMSULOSIN 0.4 MG CAP PO SCH (10:15)
[2017-10-30] MEDS: FOLIC ACID 1 MG TAB PO SCH (10:15)
[2017-10-30] MEDS: SODIUM CHLORIDE 0.9% 1000ML 1,000 ML IVS SCH (10:21)
[2017-10-30] MEDS: CEFEPIME 2 GM in SODIUM CHL 0.9% 50ML MIN-BAG+ 50 ML IVPB SCH (15:45)
--- NOTE | 2017-10-30 18:56 | PN ---
DATE: 10/30/17 SUPERVISING PHYSICIAN: Luigi Lucas M.D. SUBJECTIVE: The patient is sitting up in bed eating his meal. He feels much better today and denies any shortness of breath, nausea, vomiting, diarrhea or chest pain. OBJECTIVE: VITAL SIGNS: He is afebrile, heart rate 72, blood pressure 101/54, respiratory rate 16, O2 sat 96% on room air. RESPIRATORY: Essentially clear to auscultation bilaterally, somewhat diminished at the bases. CARDIAC: Regular rate and rhythm. GASTROINTESTINAL: Abdomen is soft, nondistended, non-tender. Bowel sounds are positive. EXTREMITIES: No cyanosis or clubbing. There is +1 pedal edema bilaterally. His pedal pulses are palpable at +2 bilaterally. NEUROLOGIC: He is awake, alert and oriented times three. LABORATORY: WBCs have increased to 13,800 with hemoglobin 12.4 and hematocrit 37, neutrophils 91.7%. Electrolytes are basically within normal limits with the exception of his BUN is 19. Glucose is slightly elevated at 121. Total bilirubin has improved from 3.1 to 1.5. AST is 54, ALT is 91, alkaline phosphatase is 130. Preliminary urine culture shows gram-negative rods. Preliminary blood cultures show no growth after 24 hours. All other labs and films have been reviewed via the EMR. ASSESSMENT: 1. Urinary tract infection most likely secondary to chronic indwelling Gonzalez catheter showing gram-negative rods on preliminary cultures. 2. Urosepsis presently awaiting sensitivities. Initially was slightly hypotensive with 95/56 blood pressure and temperature 100.1. 3. History of multiple sclerosis primarily left upper and left lower extremity. 4. Elevated liver function tests. 5. Hyperbilirubinemia that is slightly improved. PLAN: We will continue present supportive care. He is presently on Cefepime and will continue until sensitivity results are back. I will recheck labs in the morning. He may need a close followup on his liver enzymes as I do not see any history of chronically elevated liver functions. Meanwhile we will continue to monitor the patient closely and follow as needed. Dr. Lucas is the collaborating physician available for consultation. #[id number] [facility] HOSPITALRasheed
[2017-10-30] MEDS: CELECOXIB 100 MG CAP PO SCH (20:46)
[2017-10-30] MEDS: DOXEPIN HCL 3 MG PO SCH (20:46)
[2017-10-30] MEDS: ENOXAPARIN SODIUM 40 MG/0.4 ML SYG SUBCU SCH (20:47)
[2017-10-31] MEDS: SODIUM CHLORIDE 0.9% 1000ML 1,000 ML IVS SCH ×2 (00:25→14:40)
[2017-10-31] MEDS ORDERED: CEFEPIME 2 GM VIAL IVPB ONE ×3 (01:50→19:29)
[2017-10-31] MEDS ORDERED: SODIUM CHL 0.9% 50ML MIN-BAG+ 50 ML IVPB ONE ×3 (01:50→19:29)
[2017-10-31] MEDS: CEFEPIME 2 GM in SODIUM CHL 0.9% 50ML MIN-BAG+ 50 ML IVPB SCH ×2 (02:41→14:21)
[2017-10-31] MEDS: HYDROcodone 10MG/APAP 325MG 1 EA TAB PO PRN (02:43)
[2017-10-31] MEDS: OMEPRAZOLE CAP 20 MG CAP PO SCH (06:23)
[2017-10-31] MEDS: POTASSIUM CHLORIDE 8 MEQ TAB PO SCH (07:30)
[2017-10-31] MEDS ORDERED: MAGNESIUM HYDROXIDE 30 ML UD ONE (09:07)
[2017-10-31] MEDS: FOLIC ACID 1 MG TAB PO SCH (09:09)
[2017-10-31] MEDS: FUROSEMIDE 40 MG TAB PO SCH (09:09)
[2017-10-31] MEDS: TAMSULOSIN 0.4 MG CAP PO SCH (09:09)
[2017-10-31] MEDS: BACLOFEN 10 MG TAB PO SCH ×3 (09:09→20:58)
[2017-10-31] MEDS: MORPHINE ER 15 MG TAB PO SCH (09:10)
[2017-10-31] MEDS: HYDROcodone 10MG/APAP 325MG 1 EA TAB PO SCH (09:10)
[2017-10-31] MEDS: CYANOCOBALAMIN 1,000 MCG TAB PO SCH (09:10)
[2017-10-31] MEDS: TOLTERODINE TARTRATE ER 4 MG CAP PO SCH (09:10)
[2017-10-31] MEDS: POLYETHYLENE GLYCOL 3350 17 GM PCKT PO SCH (09:11)
[2017-10-31] MEDS ORDERED: MAGNESIUM HYDROXIDE 30 ML UD PO ONE (13:45)
[2017-10-31] MEDS: DOXEPIN HCL 3 MG PO SCH (20:58)
[2017-10-31] MEDS: CELECOXIB 100 MG CAP PO SCH (20:58)
[2017-10-31] MEDS: ENOXAPARIN SODIUM 40 MG/0.4 ML SYG SUBCU SCH (20:58)
[2017-11-01] MEDS: CEFEPIME 2 GM in SODIUM CHL 0.9% 50ML MIN-BAG+ 50 ML IVPB SCH (01:42)
[2017-11-01] MEDS: HYDROcodone 10MG/APAP 325MG 1 EA TAB PO PRN (03:15)
[2017-11-01] MEDS: SODIUM CHLORIDE 0.9% 1000ML 1,000 ML IVS SCH (05:34)
[2017-11-01] MEDS: OMEPRAZOLE CAP 20 MG CAP PO SCH (05:56)
[2017-11-01] MEDS: POTASSIUM CHLORIDE 8 MEQ TAB PO SCH (08:14)
[2017-11-01] MEDS: TOLTERODINE TARTRATE ER 4 MG CAP PO SCH (08:14)
[2017-11-01] MEDS: CYANOCOBALAMIN 1,000 MCG TAB PO SCH (08:14)
[2017-11-01] MEDS: FOLIC ACID 1 MG TAB PO SCH (08:14)
[2017-11-01] MEDS: BACLOFEN 10 MG TAB PO SCH (08:14)
[2017-11-01] MEDS: MORPHINE ER 15 MG TAB PO SCH (08:14)
[2017-11-01] MEDS: FUROSEMIDE 40 MG TAB PO SCH (08:14)
[2017-11-01] MEDS: TAMSULOSIN 0.4 MG CAP PO SCH (08:14)
[2017-11-01] MEDS: POLYETHYLENE GLYCOL 3350 17 GM PCKT PO SCH (08:15)
[2017-11-01] MEDS: HYDROcodone 10MG/APAP 325MG 1 EA TAB PO SCH (08:22)
--- NOTE | 2017-11-01 08:40 | PN ---
SUPERVISING PHYSICIAN: Luigi Lucas MD DATE: 10/31/17 SUBJECTIVE: The patient is lying in bed. He is playing games on his computer. He continues to feel better and has no complaints of chest pain, nausea, vomiting, diarrhea or shortness of breath. OBJECTIVE: VITAL SIGNS: Afebrile. Heart rate 76. Blood pressure 132/74. Respiratory rate 18. O2 saturation 96% on room air. LUNGS: Clear to auscultation bilaterally, but somewhat diminished at the bases. CARDIAC: Regular rate and rhythm. ABDOMEN: Soft, nondistended, nontender. Bowel sounds are positive. NEUROLOGIC: Awake, alert and oriented times three. LABORATORY: Preliminary urine culture shows gram negative rods, but further incubation will be required. Preliminary blood cultures show no growth after 48 hours. All other labs and films have been reviewed via the EMR. ASSESSMENT: 1. Urinary tract infection, most likely secondary to chronic indwelling Gonzalez catheter, showing gram-negative rods on preliminary cultures, but requiring further incubation. 2. Urosepsis, presently awaiting sensitivities. Initially was slightly hypotensive with 95/56 blood pressure and temperature 100.1. 3. History of multiple sclerosis, primarily left upper and left lower extremities. 4. Elevated liver function tests. 5. Hyperbilirubinemia, slightly improved. PLAN: We will continue present supportive care. He is presently on cefepime and we will continue with that until his sensitivities are returned. He has improved greatly overnight and hopefully he can be discharged to [facility] tomorrow. We will need to watch his liver functions closely. Dr. Lucas is his primary care physician and can follow that up in the outpatient setting. Otherwise, we will wait for his sensitivities and changes his antibiotics as needed. Hopefully he can be discharged on some oral antibiotics. We will continue to monitor the patient closely and follow as needed. Dr. Lucas is the collaborating physician and available for consultation. #[id number] [facility]
[2017-11-01 09:57] VITALS: BP 128/75; TEMP 97.7; O2SAT 94
--- NOTE | 2017-11-01 10:58 | DS ---
SUPERVISING PHYSICIAN: Luigi Lucas MD DISCHARGE DIAGNOSIS: 1. Urinary tract infection, most likely secondary to chronic indwelling Gonzalez catheter, showing proteus mirabilis and klebsiella pneumoniae with sensitivity to high dose cefepime, which is presently on. It also shows sensitivity to Levaquin on which he will be discharged. 2. Urosepsis. Initially was slightly hypotensive with 95/56 blood pressure and temperature 100.1. 3. History of multiple sclerosis, primarily left upper and left lower extremities. 4. Elevated liver function tests, now normalized. 5. Hyperbilirubinemia, improved. HISTORY OF PRESENT ILLNESS: This is a 57-year-old male patient who is a resident of [facility]. He has significant history of multiple sclerosis. He presented to the Emergency Room secondary to feeling fatigue and weakness that started the day before his admission. He had some mild nausea with no vomiting as well as some diaphoresis. He does have a history of a longstanding indwelling Gonzalez catheter. He also has a history of chronic hyperbilirubinemia. In the Emergency Room, the patient was tachycardic running in rates 130 to 140s and mildly hypotensive with systolic pressures 90s and diastolics in the 50s. He received IV fluids and the blood pressure did improve as well as the tachycardia. The patient also had a low grade fever. He denied chest pain, but did have some shortness of breath. He was admitted to the hospital. HOSPITAL COURSE: He was initially started on cefepime. Blood cultures and urine cultures were obtained. Initially, his liver enzymes elevated with a total bilirubin being 3.1 with AST 54, ALT 91, alkaline phosphatase 130. White count was 13,800 and that has normalized today to 6.1. His liver enzymes have normalized today. His preliminary blood cultures showed no growth after 48 hours, but his urine culture grew out proteus mirabilis and Klebsiella pneumoniae with both sensitive to cefepime. He has progressively improved. His vital signs have stabilized and he can be discharged to [facility] today. DISCHARGE PLAN: The patient will be discharged back to [facility] today. He will continue on Levaquin to which his urine culture showed sensitivity for both bacteria. Due to his history of frequent urinary tract infections as well as indwelling catheter, I will give him 10 days of Levaquin. He has had 4 days of cefepime. I have resumed his outpatient medications. He has a followup with MARIO Turcios, for hospital followup at Dr. Lucas' s office on 11/08/17 at 10 AM. He is to followup at the hospital or Dr. Lucas' s office for any further problems or complications. DISCHARGE MEDICATIONS: 1. Hydrocodone. 2. Tamsulosin. 3. VESIcare. 4. Potassium chloride. 5. MiraLAX. 6. Zofran. 7. Milk of Magnesia. 8. Ibuprofen. 9. Guaifenesin. 10. Furosemide. 11. Doxepin. 12. Cetirizine. 13. Celebrex. 14. Baclofen. 15. Albuterol. 16. Acetaminophen. 17. Folic acid. 18. Dexilant. 19. Vitamin B12. 20. Cyclobenzaprine. 21. Morphine sulfate. 22. Levaquin. #[id number] [facility]
[2017-11-05] MEDS ORDERED: MAGNESIUM HYDROXIDE 30 ML UD PO SCH (09:00)
== END 2017-11-01 12:30 | DRG 698 ==
LOC: ER 12:10 → MS 15:09
PROVIDERS: ADMIT Nurse Practitioner Family; ATTEND Nurse Practitioner Family
DX: T83.511A Infection and inflammatory reaction due to indwelling urethral catheter, initial encounter (principal); A41.9 Sepsis, unspecified organism; N39.0 Urinary tract infection, site not specified; B96.4 Proteus (mirabilis) (morganii) as the cause of diseases classified elsewhere; B96.1 Klebsiella pneumoniae [K. pneumoniae] as the cause of diseases classified elsewhere; G35 Multiple sclerosis; E80.6 Other disorders of bilirubin metabolism; R74.8 Abnormal levels of other serum enzymes; I50.9 Heart failure, unspecified; N40.0 Benign prostatic hyperplasia without lower urinary tract symptoms; F32.9 Major depressive disorder, single episode, unspecified; K59.00 Constipation, unspecified; G47.00 Insomnia, unspecified; Z66 Do not resuscitate; Z86.73 Personal history of transient ischemic attack (TIA), and cerebral infarction without residual deficits; Z79.1 Long term (current) use of non-steroidal anti-inflammatories (NSAID); Z79.891 Long term (current) use of opiate analgesic; Y92.129 Unspecified place in nursing home as the place of occurrence of the external cause

== ENCOUNTER → 2017-11-23 | Outpatient (CLI) | payer MEDICARE, OTHER | END | disposition home or self-care (01) | LOC: GOCC 00:20 | PROVIDERS: ATTEND Family Medicine | DX: L98.411 Non-pressure chronic ulcer of buttock limited to breakdown of skin (principal) ==

== ENCOUNTER → 2017-12-25 | Outpatient (CLI) | payer MEDICARE, MEDICAID | LOC: GMAM 10:47 | PROVIDERS: ATTEND Family Medicine | DX: M25.551 Pain in right hip (principal) ==

== ENCOUNTER 2018-03-29 00:47 | Emergency (ER) | payer MEDICARE, MEDICAID ==
--- NOTE | 2018-03-29 01:06 | ED.PDOC ---
History of Present Illness - General Chief Complaint: Abdominal Pain Stated Complaint: testicular pain, abdomen pain Time Seen by Provider: 03/29/18 01:05 Source: patient Exam Limitations: no limitations - History of Present Illness Initial Comments: Corby Phillips 57 y/o male patient at [facility] brought by ambulance with sharp right testicular pain for the last 2 days;no history of trauma but has indwelling catheter the last 2 years due to neurogenic bladder from MS.No fever/ chill,N/V.Had Multiple Sclerosis diagnosed 30 y ago and gradually got worse over the years with left sided weakness,blurred vision left eye and muscle stiffness lower extremities.DENIES ABDOMINAL PAIN. Timing/Duration: other - 2 days ago Quality: sharpness Onset Location: scrotal - right Radiation: none Activites at Onset: none Prior abdominal problems: none Sexual intercourse history: not active Improving Factors: nothing Worsening Factors: movement Associated Symptoms: other - see hpi Allergies/Adverse Reactions: Allergies Buspirone Allergy (Verified 03/29/18 00:58) Doxycycline Allergy (Verified 10/30/17 10:03) Sulfamethoxazole w/Trimethoprim [From Bactrim] Allergy (Verified 10/30/17 10:03) Home Medications: Ambulatory Orders Albuterol Sulfate Nebs [Proventil Nebs] 2.5 mg INH QID PRN 03/08/16 Baclofen 10 mg PO TID 03/08/16 Celecoxib [Celebrex] 200 mg PO BEDTIME 03/08/16 Cetirizine HCl [Zyrtec Childrens Allergy] 10 mg PO PRN 03/08/16 Doxepin HCl (Sleep) [Silenor] 3 mg PO BEDTIME 03/08/16 Furosemide [Lasix] 40 mg PO DAILY 03/08/16 Guaifenesin [Mucinex] 600 mg PO Q12H PRN 03/08/16 HYDROcodone 10MG/APAP 325MG [[place] 10/325] 1 - 2 ea PO .Q4H PRN 03/08/16 HYDROcodone 10MG/APAP 325MG [[place] 10/325] 2 tab PO DAILY 03/08/16 Ibuprofen 1 - 2 mg PO Q6H PRN 03/08/16 Magnesium Hydroxide [Milk Of Magnesia] 400 mg PO PRN PRN 03/08/16 Ondansetron HCl [Zofran] 4 mg PO Q4H PRN 03/08/16 Polyethylene Glycol 3350 [Miralax] 1 pack PO DAILY 03/08/16 Potassium Chloride [Potassium Chloride ER] 8 meq PO DAILY 03/08/16 Solifenacin Succinate [Vesicare] 5 mg PO DAILY 03/08/16 Tamsulosin HCl 0.4 mg PO DAILY 03/08/16 Acetaminophen [Arthritis Pain] 1,300 mg PO Q4H PRN 03/23/16 Cyanocobalamin [Vitamin B12] 1,000 mcg SL DAILY 12/24/16 Dexlansoprazole [Dexilant] 30 mg PO DAILY 12/24/16 Folic Acid 1 mg PO DAILY 12/24/16 Magnesium Hydroxide [Milk Of Magnesia] 30 ml PO .DAILY ON Monday12/24/16 Cyclobenzaprine HCl 10 mg PO TID PRN 10/29/17 Morphine Sulfate [Morphine Sulfate ER] 15 mg PO DAILY 10/29/17 levoFLOXacin [Levaquin] 500 mg PO DAILY #10 tab 11/01/17 levoFLOXacin [Levaquin] 500 mg PO DAILY 12 Days #12 tab 03/29/18 Review of Systems - Review of Systems Constitutional: States: no symptoms reported EENTM: States: no symptoms reported Respiratory: States: no symptoms reported Cardiology: States: no symptoms reported Gastrointestinal/Abdominal: States: no symptoms reported Genitourinary: States: see HPI Musculoskeletal: States: see HPI Neurological: States: see HPI, pre-existing deficit Past Medical History (General) - Patient Medical History Hx Seizures: No Hx Stroke: No Hx Dementia: No Hx Asthma: No Hx of COPD: No Hx Cardiac Disorders: No Hx Congestive Heart Failure: No Hx Pacemaker: No Hx Hypertension: No Hx Diabetes: No Hx MRSA: Yes Hx Other PMH: Yes - Multiple Sclerosis MRSA Source:: Leg Surgical History: cholecystectomy - Vaccination History Hx Influenza Vaccination: Yes - unknown Hx Pneumococcal Vaccination: Yes - Social History Hx Tobacco Use: No Hx Chewing Tobacco Use: Yes Hx Alcohol Use: No Hx Substance Use: No Hx Depression: Yes Hx Physical Abuse: No Hx Emotional Abuse: No - Activities of Daily Living Patient Lives Alone: No - bedbound [facility] (if applicable[facility] Family Medical History - Family History Father Family History: Unknown Age (years): 75 Living Status: Cause of : Prostate Hx Family Asthma: No Hx Family Congestive Heart Failure: Yes Hx Family Hypertension: No Hx Family Stroke: No Hx Cardiac Disease: Yes Hx Family Diabetes: No Hx Family Cancer: Yes - colon-dad;breast-mom/pancreas Hx Family;Other: Multiple sclerosis-cousin Physical Exam - Physical Exam General Appearance: Alert, Comfortable, No apparent distress Eyes, Ears, Nose, Throat Exam: normal ENT inspection Neck: non-tender, full range of motion, supple, normal inspection Cardiovascular/Respiratory: regular rate, rhythm, no M/R/G, normal peripheral pulses, normal breath sounds, no respiratory distress Gastrointestinal/Abdominal: normal bowel sounds, non tender, soft, no organomegaly Male Genital Exam: no hernia, epididymal tenderness, testicular tenderness (R) - firm,enlarged and tender testicle,indwelling catheter, other - no tenderness perineum Back Exam: no CVA tenderness, no vertebral tenderness Extremity: no pedal edema, no calf tenderness Neurologic: alert, oriented x 3, motor weakness - from MS Skin Exam: normal color, warm/dry Progress - Progress Progress: 03/29/18 01:39 Vital Signs - 8 hr 03/29/18 00:59 Temperature 97.4 F L Pulse Rate [ 93 H left] Respiratory 20 Rate Blood Pressure 132/62 [left] O2 Sat by Pulse 99 Oximetry - Results/Orders Results/Orders: 03/29/18 01:06 IV Care:Saline Lock per Protoc QSHIFT 03/29/18 01:15 URINE CULTURE W/COLONY COUNT Stat 03/29/18 01:44 levoFLOXacin 750MG IV [Levaquin 750MG IV] 750 mg Premix Bag 1 bag IVPB ONCE 03/29/18 01:48 URINE CULTURE W/COLONY COUNT Stat Laboratory Results - last 24 hr 03/29/18 03/29/18 03/29/18 01:15 01:15 01:15 WBC 9.2 RBC 4.98 Hgb 13.3 L Hct 39.5 L MCV 79.2 L MCH 26.7 L MCHC 33.6 RDW 16.5 H Plt Count 222 MPV 8.1 Absolute Neuts (auto) 6.80 Absolute Lymphs (auto) 1.30 Absolute Monos (auto) 0.80 Absolute Eos (auto) 0.30 Absolute Basos (auto) 0.00 Neutrophils % 73.8 Lymphocytes % 13.9 L Monocytes % 8.7 Eosinophils % 3.2 Basophils % 0.4 PT 12.4 INR 1.070 PTT (SP) 32.3 Sodium 139 Potassium 3.8 Chloride 105 Carbon Dioxide 27 Anion Gap 10.8 L BUN 24 H Creatinine 0.74 BUN/Creatinine Ratio 32.4 H Random Glucose 99 Serum Osmolality 281.6 Lactic Acid 1.0 Calcium 9.3 Magnesium 1.9 Total Bilirubin 0.8 Direct Bilirubin 0.2 Indirect Bilirubin 0.6 AST 28 ALT 52 Alkaline Phosphatase 112 Creatine Kinase 39 CK-MB (CK-2) 1.2 CK-MB (CK-2) % Not Reportable Troponin I < 0.02 Serum Total Protein 7.7 Albumin 3.9 Urine Color Yellow Urine Appearance Clear Urine pH 5.5 Ur Specific [place] 1.020 Urine Protein Trace Urine Glucose (UA) Negative Urine Ketones Trace Urine Blood Small H Urine Nitrite Positive H Urine Bilirubin Small H Urine Urobilinogen 2.0 H Ur Leukocyte Esterase Small H Urine RBC 3-5 H Urine WBC 5-10 H Ur Epithelial Cells 0-1 Urine Bacteria 4+ H Urine Mucus Small Departure - Departure Clinical Impression: Orchitis of right testicle, Chronic indwelling Gonzalez catheter, History of multiple sclerosis Time of Disposition: :54 - Discharge to [facility] Disposition: Discharge to [facility] Condition: Fair Departure Forms: ED Discharge - Pt. Copy, Patient Portal Self Enrollment Referrals: Luigi Lucas MD [Primary Care Provider] - 1-2 Weeks Prescriptions: levoFLOXacin [Levaquin] 500 mg PO DAILY 12 Days #12 tab Home Medications: Ambulatory Orders Albuterol Sulfate Nebs [Proventil Nebs] 2.5 mg INH QID PRN 03/08/16 Baclofen 10 mg PO TID 03/08/16 Celecoxib [Celebrex] 200 mg PO BEDTIME 03/08/16 Cetirizine HCl [Zyrtec Childrens Allergy] 10 mg PO PRN 03/08/16 Doxepin HCl (Sleep) [Silenor] 3 mg PO BEDTIME 03/08/16 Furosemide [Lasix] 40 mg PO DAILY 03/08/16 Guaifenesin [Mucinex] 600 mg PO Q12H PRN 03/08/16 HYDROcodone 10MG/APAP 325MG [[place] 10/325] 1 - 2 ea PO .Q4H PRN 03/08/16 HYDROcodone 10MG/APAP 325MG [[place] 10/325] 2 tab PO DAILY 03/08/16 Ibuprofen 1 - 2 mg PO Q6H PRN 03/08/16 Magnesium Hydroxide [Milk Of Magnesia] 400 mg PO PRN PRN 03/08/16 Ondansetron HCl [Zofran] 4 mg PO Q4H PRN 03/08/16 Polyethylene Glycol 3350 [Miralax] 1 pack PO DAILY 03/08/16 Potassium Chloride [Potassium Chloride ER] 8 meq PO DAILY 03/08/16 Solifenacin Succinate [Vesicare] 5 mg PO DAILY 03/08/16 Tamsulosin HCl 0.4 mg PO DAILY 03/08/16 Acetaminophen [Arthritis Pain] 1,300 mg PO Q4H PRN 03/23/16 Cyanocobalamin [Vitamin B12] 1,000 mcg SL DAILY 12/24/16 Dexlansoprazole [Dexilant] 30 mg PO DAILY 12/24/16 Folic Acid 1 mg PO DAILY 12/24/16 Magnesium Hydroxide [Milk Of Magnesia] 30 ml PO .DAILY ON Monday12/24/16 Cyclobenzaprine HCl 10 mg PO TID PRN 10/29/17 Morphine Sulfate [Morphine Sulfate ER] 15 mg PO DAILY 10/29/17 levoFLOXacin [Levaquin] 500 mg PO DAILY #10 tab 11/01/17 levoFLOXacin [Levaquin] 500 mg PO DAILY 12 Days #12 tab 03/29/18 Additional Instructions: Need to wear jock crotch,continue with rest of medications;return to ER as needed
[2018-03-29] MEDS ORDERED: levoFLOXacin 750MG IV 750 MG in PREMIX BAG 1 BAG IVPB ONE (01:44)
[2018-03-29 03:20] VITALS: BP 110/56; TEMP 97; O2SAT 98
== END 2018-03-29 03:28 ==
LOC: ER 00:47
DX: N45.2 Orchitis (principal); G35 Multiple sclerosis; Z96.0 Presence of urogenital implants
CPT/HCPCS: 36415; 80048; 80076; 81001; 82550; 82553; 83605; 84484; 85025; 85610; 85730; 87086; J1956

== ENCOUNTER 2018-04-11 16:56 | Emergency (ER) | payer MEDICARE, MEDICAID ==
--- NOTE | 2018-04-11 17:53 | US ---
EXAM DESCRIPTION: Testicular CLINICAL HISTORY: 57 years Male right testicle pain swelling 1 week COMPARISON: None. TECHNIQUE: Prescott scale duplex imaging performed to evaluate the testicles. FINDINGS: The right testicle measures 3 x 3.4 x 3.8 cm and appears unremarkable. The right epididymis measures 0.9 x 1.1 x 1.1 cm. Blood flow is visualized. There is a large right hydrocele. There is a complex partially cystic and partially solid appearing lesion in the right scrotum which appears extratesticular. No definite blood flow is visualized within the lesion. This could represent an evolving hematoma or an abscess collection. CT recommended to better evaluate. The left testicle measures 4.2 x 3.5 x 2.2 cm and appears unremarkable. The left epididymis measures 0.9 x 1.1 x 0.6 cm. Blood flow is visualized. IMPRESSION: Complex lesion in the right scrotum which is of uncertain etiology but could represent an evolving hematoma or an abscess collection. CT recommended to better evaluate. Large right hydrocele. Electronically signed by: Eduard Hong MD 04/11/2018 5:51 PM CDT
[2018-04-11] MEDS ORDERED: IODOFORM 1/4 INCH 1 EA BTTL TOP ONE (18:36)
[2018-04-11] MEDS ORDERED: CIPROFLOXACIN 500 MG TAB PO ONE (18:46)
[2018-04-11] MEDS ORDERED: CLINDAMYCIN HCL CAP 150 MG CAP PO ONE (18:46)
[2018-04-11] MEDS ORDERED: FLUCONAZOLE 100 MG TAB PO ONE (18:49)
--- NOTE | 2018-04-11 18:49 | ED.PDOC ---
History of Present Illness - General Chief Complaint: Problem Stated Complaint: scrotum swelling Time Seen by Provider: 04/11/18 16:58 Source: patient Exam Limitations: no limitations - History of Present Illness Initial Comments: the patient is a 57-year-old male presenting to the emergency room secondary to scrotal enlargement and right testicular pain for the last 2 weeks. The worst it has been the last couple of days. No fever. No penile discharge though he does have a chronic indwelling Gonzalez catheter. No evidence of sepsis. No drainage. Scrotum is significantly swollen. No abdominal pain. He denies constipation or diarrhea. Timing/Duration: unsure Severity: moderate Improving Factors: nothing Worsening Factors: nothing Associated Symptoms: denies symptoms Allergies/Adverse Reactions: Allergies Buspirone Allergy (Verified 04/11/18 18:17) Doxycycline Allergy (Verified 04/11/18 18:17) Sulfamethoxazole w/Trimethoprim [From Bactrim] Allergy (Verified 04/11/18 18:17) Home Medications: Ambulatory Orders Albuterol Sulfate Nebs [Proventil Nebs] 2.5 mg INH QID PRN 03/08/16 Baclofen 10 mg PO TID 03/08/16 Celecoxib [Celebrex] 200 mg PO BEDTIME 03/08/16 Cetirizine HCl [Zyrtec Childrens Allergy] 10 mg PO PRN 03/08/16 Doxepin HCl (Sleep) [Silenor] 3 mg PO BEDTIME 03/08/16 Furosemide [Lasix] 40 mg PO DAILY 03/08/16 Guaifenesin [Mucinex] 600 mg PO Q12H PRN 03/08/16 HYDROcodone 10MG/APAP 325MG [[place] 10/325] 1 - 2 ea PO .Q4H PRN 03/08/16 HYDROcodone 10MG/APAP 325MG [[place] 10/325] 2 tab PO DAILY 03/08/16 Ibuprofen 1 - 2 mg PO Q6H PRN 03/08/16 Magnesium Hydroxide [Milk Of Magnesia] 400 mg PO PRN PRN 03/08/16 Ondansetron HCl [Zofran] 4 mg PO Q4H PRN 03/08/16 Polyethylene Glycol 3350 [Miralax] 1 pack PO DAILY 03/08/16 Potassium Chloride [Potassium Chloride ER] 8 meq PO DAILY 03/08/16 Solifenacin Succinate [Vesicare] 5 mg PO DAILY 03/08/16 Tamsulosin HCl 0.4 mg PO DAILY 03/08/16 Acetaminophen [Arthritis Pain] 1,300 mg PO Q4H PRN 03/23/16 Cyanocobalamin [Vitamin B12] 1,000 mcg SL DAILY 12/24/16 Dexlansoprazole [Dexilant] 30 mg PO DAILY 12/24/16 Folic Acid 1 mg PO DAILY 12/24/16 Magnesium Hydroxide [Milk Of Magnesia] 30 ml PO .DAILY ON Monday12/24/16 Cyclobenzaprine HCl 10 mg PO TID PRN 10/29/17 Morphine Sulfate [Morphine Sulfate ER] 15 mg PO DAILY 10/29/17 levoFLOXacin [Levaquin] 500 mg PO DAILY #10 tab 11/01/17 levoFLOXacin [Levaquin] 500 mg PO DAILY 12 Days #12 tab 03/29/18 Ciprofloxacin [Cipro] 500 mg PO BID #20 tab 04/11/18 Clindamycin HCl 300 mg PO Q8H #30 cap 04/11/18 Review of Systems - Review of Systems Constitutional: States: no symptoms reported EENTM: States: no symptoms reported Respiratory: States: no symptoms reported Cardiology: States: no symptoms reported Gastrointestinal/Abdominal: States: no symptoms reported Musculoskeletal: States: see HPI Skin: States: no symptoms reported Neurological: States: no symptoms reported Endocrine: States: no symptoms reported All other Systems: No Change from Baseline Past Medical History (General) - Patient Medical History Hx Seizures: No Hx Stroke: No Hx Dementia: No Hx Asthma: No Hx of COPD: No Hx Cardiac Disorders: No Hx Congestive Heart Failure: No Hx Pacemaker: No Hx Hypertension: No Hx Diabetes: No Hx MRSA: Yes MRSA Source:: Leg Surgical History: cholecystectomy - Vaccination History Hx Influenza Vaccination: Yes Hx Pneumococcal Vaccination: Yes - Social History Hx Tobacco Use: No Hx Chewing Tobacco Use: Yes Hx Alcohol Use: No Hx Substance Use: No Hx Depression: Yes Hx Physical Abuse: No Hx Emotional Abuse: No - Activities of Daily Living Retirement/Assisted Living (if applicable):: [facility] Family Medical History - Family History Father Family History: Unknown Age (years): 75 Living Status: Cause of : Prostate Hx Family Asthma: No Hx Family Congestive Heart Failure: Yes Hx Family Hypertension: No Hx Family Stroke: No Hx Cardiac Disease: Yes Hx Family Diabetes: No Hx Family Cancer: Yes - colon-dad;breast-mom/pancreas Hx Family;Other: Multiple sclerosis-cousin Physical Exam - Physical Exam General Appearance: Alert, No apparent distress Eye Exam: bilateral normal Ears, Nose, Throat: hearing grossly normal Neck: non-tender, supple Respiratory: no respiratory distress, no accessory muscle use Cardiovascular/Chest: no edema, other - regular rate Peripheral Pulses: radial,right: 2+, radial,left: 2+, dorsalis pedis,right: 1+, dorsalis pedis,left: 1+ Gastrointestinal/Abdominal: non tender, soft Rectal Exam: deferred, other - scrotum shows significant right-sided swelling and tenderness to palpation. No drainage tract. Back Exam: no CVA tenderness, no vertebral tenderness Extremity: no pedal edema, no calf tenderness, normal capillary refill Neurologic: pit slagman II-XII nml as tested, alert, normal mood/affect, oriented x 3 Skin Exam: normal color - erythema of the scrotum is present Comments: Vital Signs - 24 hr 04/11/18 04/11/18 17:10 18:19 Temperature 98.7 F Pulse Rate [ 82 85 pulse ox] Respiratory 16 16 Rate Blood Pressure 116/78 132/60 [Left Arm] O2 Sat by Pulse 99 97 Oximetry Progress - Progress Progress: 04/11/18 18:50 the patient's a 57-year-old male presenting with right testicular pain and swelling progressive over the last couple of weeks. Ultrasound performed here shows that he does have a hydrocele on that side however he also has a complex cystic structure adjacent to the right testicle. It is unknown if this is a hematoma or an abscess. risk and benefits were explained to the patient prior to the procedure and he did agree to proceed. Under directed guidance with ultrasound, needle aspiration was performed confirming pus. The same entry point was used to make a small 1 cm incision with a #15 blade scalpel. Approximately 20 cc of pus has been expressed. Wound culture has been performed. The cavity has been packed with quarter-inch form gauze. He will need to have his packing changed every day. I'm going to place the patient on clindamycin and ciprofloxacin given his allergies. Source of the abscess is not entirely certain, whether this came from a puncture in the skin or from chronic irritation of the urethral tract by the Gonzalez or from possibly even the intestine or prostate. If the cavity site fails to heal or recurs then additional imaging such as a CT scan may be worthwhile. At this point in time he does not appear to have any abdominal pain and his Gonzalez catheter appears to be draining well. No evidence of sepsis at this time. Culture results will need to be followed to target therapy likely for a period of at least 3 weeks. For now he'll be written for 10 day courses of both ciprofloxacin and clindamycin. he needs to follow up with his primary care doctor before the weekend. ER warnings were given for any worsening. - Results/Orders Results/Orders: 04/11/18 18:22 UA [URINALYSIS] Stat 04/11/18 18:47 WOUND CULTURE Stat Laboratory Results - last 24 hr 04/11/18 18:22 Urine Color Yellow Urine Appearance Clear Urine pH 8.5 H Ur Specific [place] 1.015 Urine Protein Negative Urine Glucose (UA) Negative Urine Ketones Negative Urine Blood Negative Urine Nitrite Positive H Urine Bilirubin Negative Urine Urobilinogen 2.0 H Ur Leukocyte Esterase Negative Urine RBC 0 Urine WBC 0-1 Ur Epithelial Cells 0-1 Amorphous Sediment 1+ Urine Bacteria Rare Departure - Departure Clinical Impression: Abscess of scrotum Disposition: Discharge to SNF Condition: Fair Departure Forms: ED Discharge - Pt. Copy, Patient Portal Self Enrollment Instructions: DI for Scrotal Abscess Diet: regular diet Activity: increase activity as tolerated Referrals: Luigi Lucas MD [Primary Care Provider] - 1-5 Days Prescriptions: Ciprofloxacin [Cipro] 500 mg PO BID #20 tab Clindamycin HCl 300 mg PO Q8H #30 cap Home Medications: Ambulatory Orders Albuterol Sulfate Nebs [Proventil Nebs] 2.5 mg INH QID PRN 03/08/16 Baclofen 10 mg PO TID 03/08/16 Celecoxib [Celebrex] 200 mg PO BEDTIME 03/08/16 Cetirizine HCl [Zyrtec Childrens Allergy] 10 mg PO PRN 03/08/16 Doxepin HCl (Sleep) [Silenor] 3 mg PO BEDTIME 03/08/16 Furosemide [Lasix] 40 mg PO DAILY 03/08/16 Guaifenesin [Mucinex] 600 mg PO Q12H PRN 03/08/16 HYDROcodone 10MG/APAP 325MG [[place] 10/325] 1 - 2 ea PO .Q4H PRN 03/08/16 HYDROcodone 10MG/APAP 325MG [[place] 10/325] 2 tab PO DAILY 03/08/16 Ibuprofen 1 - 2 mg PO Q6H PRN 03/08/16 Magnesium Hydroxide [Milk Of Magnesia] 400 mg PO PRN PRN 03/08/16 Ondansetron HCl [Zofran] 4 mg PO Q4H PRN 03/08/16 Polyethylene Glycol 3350 [Miralax] 1 pack PO DAILY 03/08/16 Potassium Chloride [Potassium Chloride ER] 8 meq PO DAILY 03/08/16 Solifenacin Succinate [Vesicare] 5 mg PO DAILY 03/08/16 Tamsulosin HCl 0.4 mg PO DAILY 03/08/16 Acetaminophen [Arthritis Pain] 1,300 mg PO Q4H PRN 03/23/16 Cyanocobalamin [Vitamin B12] 1,000 mcg SL DAILY 12/24/16 Dexlansoprazole [Dexilant] 30 mg PO DAILY 12/24/16 Folic Acid 1 mg PO DAILY 12/24/16 Magnesium Hydroxide [Milk Of Magnesia] 30 ml PO .DAILY ON Monday12/24/16 Cyclobenzaprine HCl 10 mg PO TID PRN 10/29/17 Morphine Sulfate [Morphine Sulfate ER] 15 mg PO DAILY 10/29/17 levoFLOXacin [Levaquin] 500 mg PO DAILY #10 tab 11/01/17 levoFLOXacin [Levaquin] 500 mg PO DAILY 12 Days #12 tab 03/29/18 Ciprofloxacin [Cipro] 500 mg PO BID #20 tab 04/11/18 Clindamycin HCl 300 mg PO Q8H #30 cap 04/11/18 Additional Instructions: the patient's a 57-year-old male presenting with right testicular pain and swelling progressive over the last couple of weeks. Ultrasound performed here shows that he does have a hydrocele on that side however he also has a complex cystic structure adjacent to the right testicle. It is unknown if this is a hematoma or an abscess. risk and benefits were explained to the patient prior to the procedure and he did agree to proceed. Under directed guidance with ultrasound, needle aspiration was performed confirming pus. The same entry point was used to make a small 1 cm incision with a #15 blade scalpel. Approximately 20 cc of pus has been expressed. Wound culture has been performed. The cavity has been packed with quarter-inch form gauze. He will need to have his packing changed every day. I'm going to place the patient on clindamycin and ciprofloxacin given his allergies. Source of the abscess is not entirely certain, whether this came from a puncture in the skin or from chronic irritation of the urethral tract by the Gonzalez or from possibly even the intestine or prostate. If the cavity site fails to heal or recurs then additional imaging such as a CT scan may be worthwhile. At this point in time he does not appear to have any abdominal pain and his Gonzalez catheter appears to be draining well. No evidence of sepsis at this time. Culture results will need to be followed to target therapy likely for a period of at least 3 weeks. For now he'll be written for 10 day courses of both ciprofloxacin and clindamycin. he needs to follow up with his primary care doctor before the weekend. ER warnings were given for any worsening.
[2018-04-11 19:51] VITALS: BP 125/76; TEMP 97.8; O2SAT 100
== END 2018-04-11 19:51 ==
LOC: ER 16:56
DX: N43.3 Hydrocele, unspecified (principal); N45.4 Abscess of epididymis or testis; Z86.14 Personal history of Methicillin resistant Staphylococcus aureus infection; Z96.0 Presence of urogenital implants

== ENCOUNTER → 2018-04-20 | Outpatient (CLI) | payer MEDICARE, MEDICAID ==
--- NOTE | 2018-04-20 13:46 | CT ---
EXAM DESCRIPTION: Pelvis w/Contrast CLINICAL HISTORY: 57 years Male, CUTANEOUS ABSCESS OF OTHER SITES COMPARISON: Ultrasound of the scrotum dated 04/11/2018. TECHNIQUE: Contiguous axial images through the pelvis were obtained after intravenous contrast administration. Sagittal and coronal reconstructions were reviewed. FINDINGS: Large amount of fluid is identified in the right scrotal sac. This measures less than 10 Hounsfield units and is consistent with a hydrocele. There is a subcutaneous fluid collection and skin thickening along the inferior aspect of the scrotum, most likely representing cellulitis with a small phlegmon/early abscess. Large amount of fecal material is noted in the sigmoid colon and rectum consistent with constipation. The urinary bladder is collapsed with intraluminal air secondary to Gonzalez catheterization. The visualized bones appear grossly unremarkable. IMPRESSION: 1. Subcutaneous Fluid collection and skin thickening is noted along the inferior aspect of the scrotum, most likely representing cellulitis with associated phlegmon/early abscess. This measures approximately 2.3 x 0.8 cm in transverse and craniocaudal dimensions. 2. Constipation. Electronically signed by: Jovita Aviles MD 04/20/2018 1:44 PM CDT
== END ==
LOC: CT 12:24
PROVIDERS: ATTEND Nurse Practitioner Family
DX: L02.818 Cutaneous abscess of other sites (principal); N50.819 Testicular pain, unspecified; K59.00 Constipation, unspecified

== ENCOUNTER → 2018-09-26 | Outpatient (CLI) | payer MEDICARE, MEDICAID | LOC: GMAM 14:35 | PROVIDERS: ATTEND Family Medicine | DX: Z12.5 Encounter for screening for malignant neoplasm of prostate (principal) ==

== ENCOUNTER → 2020-02-24 | Outpatient (CLI) | payer MEDICARE, MEDICAID | LOC: GOCC 06:47 | PROVIDERS: ATTEND Internal Medicine | DX: N39.0 Urinary tract infection, site not specified (principal); K81.0 Acute cholecystitis; R33.9 Retention of urine, unspecified; R40.1 Stupor ==

== ENCOUNTER → 2020-08-18 | Outpatient (CLI) | payer MEDICARE, MEDICAID | LOC: ECHO 13:30 | PROVIDERS: ATTEND Family Medicine | DX: I50.22 Chronic systolic (congestive) heart failure (principal); I51.7 Cardiomegaly ==

== ENCOUNTER 2020-10-23 16:18 | Inpatient (IN) | payer MEDICARE, MEDICAID ==
[2020-10-23] MEDS ORDERED: SODIUM CHLORIDE 0.9% (FLUSH) 10 ML SYG IV PRN ×2 (16:29→22:09)
[2020-10-23] MEDS ORDERED: SODIUM CHLORIDE 0.9% 1000ML 1,000 ML IVS ONE ×2 (16:29→19:46)
[2020-10-23] MEDS ORDERED: cefTRIAXone SODIUM 2 GM in SODIUM CHL 0.9% 100ML MINI-BAG 100 ML IVPB ONE (16:29)
--- NOTE | 2020-10-23 17:21 | RAD ---
EXAM DESCRIPTION: Chest,1 View CLINICAL HISTORY: 60 years Male Confusion COMPARISON: 10/29/2017. FINDINGS: There is scoliosis in the thoracic spine convex left. The cardiomediastinal silhouette appears unremarkable. There is mild elevation of the right hemidiaphragm with slightly increased density in the right lung similar compared to the prior study. The findings may be from atelectasis. The left lung appears clear. No pleural effusions. No pneumothorax. The appearance is similar compared to the prior study. IMPRESSION: There is scoliosis and elevation of the right hemidiaphragm resulting in volume loss in the right lung. There is slightly increased density in the right lung likely related to the volume loss. The appearance is similar compared to the prior study. Electronically signed by: Eduard Hong MD 10/23/2020 5:20 PM [facility]
[2020-10-23] MEDS ORDERED: CEFEPIME 1 GM in SODIUM CHLORIDE 0.9% 50ML 50 ML IVPB ONE (18:47)
--- NOTE | 2020-10-23 19:33 | ED.PDOC ---
History of Present Illness - General Chief Complaint: Neuro Symptoms/Deficits Stated Complaint: altered mental status Time Seen by Provider: 10/23/20 16:29 Source: patient - Pt is altered and unable to obtain information from him., RN notes reviewed, Vital Signs reviewed, EMS notes reviewed Exam Limitations: no limitations - History of Present Illness Initial Comments: Patient is a 60-year-old white male who [facility] with altered mental status x6 hours. Per EMS patient just finished treatment for a urinary tract infection a couple of days ago. On arrival here patient with a GCS of 9. Patient had a Gonzalez in place that had thick purulent urine within the Gonzalez collection system. Patient is confused, and I am unable to obtain an HPI or review of systems secondary to his confusion and clinical condition. Timing/Duration: 4-6 hours, getting worse Severity: severe Improving Factors: nothing Worsening Factors: nothing Associated Symptoms: denies symptoms Allergies/Adverse Reactions: Allergies Buspirone Allergy (Verified 04/11/18 18:17) Doxycycline Allergy (Verified 04/11/18 18:17) Sulfamethoxazole w/Trimethoprim [From Bactrim] Allergy (Verified 04/11/18 18:17) Home Medications: Ambulatory Orders Albuterol Sulfate Nebs [Proventil Nebs] 2.5 mg INH QID PRN 03/08/16 Baclofen 10 mg PO TID 03/08/16 Celecoxib [Celebrex] 200 mg PO BEDTIME 03/08/16 Cetirizine HCl [Zyrtec Childrens Allergy] 10 mg PO PRN 03/08/16 Doxepin HCl (Sleep) [Silenor] 3 mg PO BEDTIME 03/08/16 Furosemide [Lasix] 40 mg PO DAILY 03/08/16 Guaifenesin [Mucinex] 600 mg PO Q12H PRN 03/08/16 HYDROcodone 10MG/APAP 325MG [[place] 10/325] 1 - 2 ea PO .Q4H PRN 03/08/16 HYDROcodone 10MG/APAP 325MG [[place] 10/325] 2 tab PO DAILY 03/08/16 Ibuprofen 1 - 2 mg PO Q6H PRN 03/08/16 Magnesium Hydroxide [Milk Of Magnesia] 400 mg PO PRN PRN 03/08/16 Ondansetron HCl [Zofran] 4 mg PO Q4H PRN 03/08/16 Polyethylene Glycol 3350 [Miralax] 1 pack PO DAILY 03/08/16 Potassium Chloride [Potassium Chloride ER] 8 meq PO DAILY 03/08/16 Solifenacin Succinate [Vesicare] 5 mg PO DAILY 03/08/16 Tamsulosin HCl 0.4 mg PO DAILY 03/08/16 Acetaminophen [Arthritis Pain] 1,300 mg PO Q4H PRN 03/23/16 Cyanocobalamin [Vitamin B12] 1,000 mcg SL DAILY 12/24/16 Dexlansoprazole [Dexilant] 30 mg PO DAILY 12/24/16 Folic Acid 1 mg PO DAILY 12/24/16 Magnesium Hydroxide [Milk Of Magnesia] 30 ml PO .DAILY ON Monday12/24/16 Cyclobenzaprine HCl 10 mg PO TID PRN 10/29/17 Morphine Sulfate [Morphine Sulfate ER] 15 mg PO DAILY 10/29/17 levoFLOXacin [Levaquin] 500 mg PO DAILY #10 tab 11/01/17 levoFLOXacin [Levaquin] 500 mg PO DAILY 12 Days #12 tab 03/29/18 Ciprofloxacin [Cipro] 500 mg PO BID #20 tab 04/11/18 Clindamycin HCl 300 mg PO Q8H #30 cap 04/11/18 Review of Systems - Review of Systems Unable to Obtain Due To: condition, clinical condition Past Medical History (General) - Patient Medical History Hx Seizures: No Hx Stroke: No Hx Dementia: No Hx Asthma: No Hx of COPD: No Hx Cardiac Disorders: No Hx Congestive Heart Failure: No Hx Pacemaker: No Hx Hypertension: No Hx Diabetes: No Hx MRSA: Yes MRSA Source:: Leg - Vaccination History Hx Influenza Vaccination: - unknown Hx Pneumococcal Vaccination: Yes - Social History Hx Tobacco Use: No Hx Chewing Tobacco Use: Yes Hx Alcohol Use: No Hx Substance Use: No Hx Depression: Yes Hx Physical Abuse: No Hx Emotional Abuse: No - Activities of Daily Living Retirement/Assisted Living (if applicable):: [facility] Family Medical History - Family History Father Family History: Unknown Age (years): 75 Living Status: Cause of : Prostate Hx Family Asthma: No Hx Family Congestive Heart Failure: Yes Hx Family Hypertension: No Hx Family Stroke: No Hx Cardiac Disease: Yes Hx Family Diabetes: No Hx Family Cancer: Yes - colon-dad;breast-mom/pancreas Hx Family;Other: Multiple sclerosis-cousin Physical Exam - Physical Exam General Appearance: Frail, Obvious distress, Ill Appearing, Restless Eye Exam: bilateral normal Ears, Nose, Throat: hearing grossly normal, normal pharynx - Except dry mucous membranes Neck: non-tender, full range of motion, supple Respiratory: chest non-tender, no respiratory distress, decreased breath sounds, rhonchi - Diffusely throughout Cardiovascular/Chest: normal peripheral pulses, no murmur, tachycardia Peripheral Pulses: radial,right: 2+, radial,left: 2+ Gastrointestinal/Abdominal: normal bowel sounds, non tender, soft Back Exam: no CVA tenderness, no vertebral tenderness, decreased range of motion Extremity: normal capillary refill, pelvis stable, other - Patients with contractures in his feet and hands. Neurologic: aphasia, motor weakness - Generalized, disoriented x 3 Skin Exam: warm/dry, pallor Lymphatic: no adenopathy Progress - Progress Progress: Differential diagnosis: Sepsis, UTI, pyelonephritis, bowel obstruction among others. 10/23/20 19:44 Patient continues to be altered and mildly tachycardic. He has received IV fluids and IV antibiotics. Gonzalez has been changed out. Patient to be admitted for IV antibiotics. I discussed this with Bhavin Fletcher NP who is excepted the patient for admission. 10/23/20 19:48 Patient is now awake and talking with us. Will continue bolusing fluid and have discussed with his family and him that he will be admitted to the hospital. They voiced understanding and agreement with plan of care. Eduard Burt M.D. #[id number] - Results/Orders Results/Orders: 10/23/20 16:29 Telemetry .ONCE Sodium Chloride 0.9% (Flush) [Saline Flush Syringe] 10 ml IV PRN PRN URINE CULTURE W/COLONY COUNT Stat Arterial Blood Gas Stat EKG Stat Pulse Ox Stat Pulse Oximetry Assessment DAILY 10/23/20 16:53 BLOOD CULTURE Stat 10/23/20 17:08 URINE CULTURE W/COLONY COUNT Stat Laboratory Results - last 24 hr 10/23/20 10/23/20 10/23/20 16:53 16:53 16:53 WBC 19.7 H RBC 4.51 L Hgb 13.0 L Hct 37.9 L MCV 84.0 MCH 28.8 MCHC 34.2 RDW 14.9 H Plt Count 201 MPV 7.3 L Absolute Neuts (auto) 17.50 H Absolute Lymphs (auto) 0.50 L Absolute Monos (auto) 1.60 H Absolute Eos (auto) 0.00 Absolute Basos (auto) 0.10 Neutrophils % 88.9 H Lymphocytes % 2.5 L Monocytes % 8.3 Eosinophils % 0.0 L Basophils % 0.3 PT 11.1 H INR 1.12 PTT (SP) 31.7 H Sodium 129 L Potassium 4.3 Chloride 96 L Carbon Dioxide 19 L Anion Gap 18.3 H BUN 15 Creatinine 1.07 BUN/Creatinine Ratio 14.0 Random Glucose 115 H Serum Osmolality 260.7 L Lactic Acid Calcium 8.0 L Total Bilirubin 1.6 H AST 23 ALT 34 Alkaline Phosphatase 104 Creatine Kinase 81 CK-MB (CK-2) 0.6 CK-MB (CK-2) % Not Reportable Troponin I < 0.02 Serum Total Protein 7.2 Albumin 3.0 L Globulin 4.2 H Albumin/Globulin Ratio 0.7 L Urine Color Urine Appearance Urine pH Ur Specific Star Urine Protein Urine Glucose (UA) Urine Ketones Urine Blood Urine Nitrite Urine Bilirubin Urine Urobilinogen Ur Leukocyte Esterase Urine RBC Urine WBC Ur Epithelial Cells Urine Bacteria 10/23/20 10/23/20 10/23/20 16:53 17:08 18:25 WBC RBC Hgb Hct MCV MCH MCHC RDW Plt Count MPV Absolute Neuts (auto) Absolute Lymphs (auto) Absolute Monos (auto) Absolute Eos (auto) Absolute Basos (auto) Neutrophils % Lymphocytes % Monocytes % Eosinophils % Basophils % PT INR PTT (SP) Sodium Potassium Chloride Carbon Dioxide Anion Gap BUN Creatinine BUN/Creatinine Ratio Random Glucose Serum Osmolality Lactic Acid 1.2 1.0 Calcium Total Bilirubin AST ALT Alkaline Phosphatase Creatine Kinase CK-MB (CK-2) CK-MB (CK-2) % Troponin I Serum Total Protein Albumin Globulin Albumin/Globulin Ratio Urine Color Yellow Urine Appearance Turbid H Urine pH 8.0 H Ur Specific Star 1.015 Urine Protein Negative Urine Glucose (UA) Negative Urine Ketones Negative Urine Blood Large H Urine Nitrite Negative Urine Bilirubin Negative Urine Urobilinogen 0.2 Ur Leukocyte Esterase Large H Urine RBC Obscured by wbc's H Urine WBC Tntc H Ur Epithelial Cells Obscured by wbc's Urine Bacteria Obscured by wbc's H EKG performed on 23 October 2020 at 1637 hrs.: Sinus tachycardia at 129 bpm, right axis deviation, no ST or T wave changes concerning for acute ischemia, borderline EKG. EXAM DESCRIPTION: Chest,1 View CLINICAL HISTORY: 60 years Male Confusion COMPARISON: 10/29/2017. FINDINGS: There is scoliosis in the thoracic spine convex left. The cardiomediastinal silhouette appears unremarkable. There is mild elevation of the right hemidiaphragm with slightly increased density in the right lung similar compared to the prior study. The findings may be from atelectasis. The left lung appears clear. No pleural effusions. No pneumothorax. The appearance is similar compared to the prior study. IMPRESSION: There is scoliosis and elevation of the right hemidiaphragm resulting in volume loss in the right lung. There is slightly increased density in the right lung likely related to the volume loss. The appearance is similar compared to the prior study. Electronically signed by: Eduard Hong MD 10/23/2020 5:20 PM [employer] Vital Signs 10/23/20 10/23/20 10/23/20 16:32 16:42 17:34 Temperature 98.2 F Pulse Rate [ 127 H 124 H Left Brachial] Respiratory 20 16 Rate Blood Pressure 107/60 116/68 [Right Arm] O2 Sat by Pulse 95 95 97 Oximetry Rapid Covid is negative. Departure - Departure Clinical Impression: Dehydration, Tachycardia UTI (urinary tract infection) Qualifiers: Urinary tract infection type: catheter-associated UTI Indwelling urinary catheter type: indwelling urethral catheter Encounter type: initial encounter Qualified Code(s): T83.511A - Infection and inflammatory reaction due to indwelling urethral catheter, initial encounter; N39.0 - Urinary tract infection, site not specified Altered mental status Qualifiers: Altered mental status type: stupor Qualified Code(s): R40.1 - Stupor Time of Disposition: 19:48 Disposition: Admit Patient Departure Forms: ED Discharge - Pt. Copy, Patient Portal Self Enrollment Referrals: Luigi Lucas MD [Primary Care Provider] - 1-2 Weeks Home Medications: Ambulatory Orders Albuterol Sulfate Nebs [Proventil Nebs] 2.5 mg INH QID PRN 03/08/16 Baclofen 10 mg PO TID 03/08/16 Celecoxib [Celebrex] 200 mg PO BEDTIME 03/08/16 Cetirizine HCl [Zyrtec Childrens Allergy] 10 mg PO PRN 03/08/16 Doxepin HCl (Sleep) [Silenor] 3 mg PO BEDTIME 03/08/16 Furosemide [Lasix] 40 mg PO DAILY 03/08/16 Guaifenesin [Mucinex] 600 mg PO Q12H PRN 03/08/16 HYDROcodone 10MG/APAP 325MG [[place] 10/325] 1 - 2 ea PO .Q4H PRN 03/08/16 HYDROcodone 10MG/APAP 325MG [[place] 10/325] 2 tab PO DAILY 03/08/16 Ibuprofen 1 - 2 mg PO Q6H PRN 03/08/16 Magnesium Hydroxide [Milk Of Magnesia] 400 mg PO PRN PRN 03/08/16 Ondansetron HCl [Zofran] 4 mg PO Q4H PRN 03/08/16 Polyethylene Glycol 3350 [Miralax] 1 pack PO DAILY 03/08/16 Potassium Chloride [Potassium Chloride ER] 8 meq PO DAILY 03/08/16 Solifenacin Succinate [Vesicare] 5 mg PO DAILY 03/08/16 Tamsulosin HCl 0.4 mg PO DAILY 03/08/16 Acetaminophen [Arthritis Pain] 1,300 mg PO Q4H PRN 03/23/16 Cyanocobalamin [Vitamin B12] 1,000 mcg SL DAILY 12/24/16 Dexlansoprazole [Dexilant] 30 mg PO DAILY 12/24/16 Folic Acid 1 mg PO DAILY 12/24/16 Magnesium Hydroxide [Milk Of Magnesia] 30 ml PO .DAILY ON Monday12/24/16 Cyclobenzaprine HCl 10 mg PO TID PRN 10/29/17 Morphine Sulfate [Morphine Sulfate ER] 15 mg PO DAILY 10/29/17 levoFLOXacin [Levaquin] 500 mg PO DAILY #10 tab 11/01/17 levoFLOXacin [Levaquin] 500 mg PO DAILY 12 Days #12 tab 03/29/18 Ciprofloxacin [Cipro] 500 mg PO BID #20 tab 04/11/18 Clindamycin HCl 300 mg PO Q8H #30 cap 04/11/18 Decision To Admit - Decistion To Admit Decision to Admit Date: 10/23/20 Decision to Admit Time: 18:15
--- NOTE | 2020-10-23 21:38 | HP ---
SUPERVISING PHYSICIAN: Luigi Lucas MD CHIEF COMPLAINT: Altered mental status. HISTORY OF PRESENT ILLNESS: Mr. Phillips is a 60-year-old, male patient who presented from [facility] to the Emergency Room supposedly with acute mental status change for over 6 hours. Review of his records show he was recently treated for a urinary tract infection and finished that treatment several days ago. On arrival to the Emergency Room, the patient was noted to be with a GCS of 9. His Gonzalez was in place which is chronic, but noted there was some thick purulent urine in the Gonzalez collecting system. The system was changed out including the indwelling Gonzalez. He was started on fluids, labs were collected and a repeat of a urinalysis with Gonzalez placement showed a microscopic with too numerous to count WBCs, a large amount of leukoesterase, large amount of blood. His white count was elevated at 19,700 with a left shift. Blood gas analysis showed a P02 of 104, pH of 7.46, oxygen saturation 90% on nasal cannula. His chemistries showed a sodium of 129 with anon gap elevated at 18.3, creatinine 1.07, bilirubin was slightly elevated at 1.6. Liver functions all within normal limits. Urine culture was submitted, blood cultures were drawn. A chest x-ray showed no significant change compared to previous on 10/29/17, just increased density in the right lung likely related to volume loss and appearance is similar to previous exams. Nasal swab for Covid was negative. Vital signs in the Emergency Room show he was afebrile with temperature of 98.2, pulse 127, blood pressure 107/60, respirations 20, oxygen saturation 95% on 2 liter nasal cannula. Given the recent treatment for urinary tract infection and findings on urinalysis along with findings on CBC and his vital signs indicating likely early sepsis secondary to urinary tract infection, he was started on antibiotics with Ceftriaxone and Cefepime. His lactic acid was normal initially at 1.2. He is now going to be admitted for sepsis secondary to urinary tract infection due to chronic Gonzalez catheter. He is admitted in stable condition. PAST MEDICAL HISTORY: 1. Congestive heart failure, unknown etiology with no echocardiogram available at time of admission. 2. Benign prostatic hypertrophy with chronic indwelling Gonzalez catheter. 3. Chronic constipation. 4. Multiple sclerosis. 5. Previous cerebrovascular accident with residual left-sided weakness. 7. Depression. PAST SURGICAL HISTORY: 1. Cholecystectomy. 2. I&D of elbow for bursitis. CURRENT MEDICATIONS: Awaiting an updated list from the [facility] for verification, start medication, Wellbutrin, doxycycline and Bactrim. FAMILY HISTORY: Noncontributory to current admission. SOCIAL HISTORY: The patient is disabled and lives at [facility]. He denies alcohol, tobacco or illicit drug use. He is . REVIEW OF SYSTEMS: Initially unable to obtain due to the patient's acute mental status change on initial admission. PHYSICAL EXAMINATION: VITAL SIGNS: Temperature 98.2. Pulse 127. Blood pressure 107/60. Respiratory rate 20. Oxygen saturation 95 to 97% on 2 liter nasal cannula. GENERAL: The patient looks to be in no acute distress initially. He is quite unkept and looks ill in appearance. HEENT: Tympanic membranes are clear bilaterally. Oropharynx is pink with dry mucous membranes. NECK: Supple, non-tender. Full range of motion. CHEST: Lung sounds are just diminished throughout. No obvious rhonchi, rales, or wheezes are noted. CARDIOVASCULAR: Regular rate and rhythm but showing tachycardiac on monitor. EXTREMITIES: Without any cyanosis, clubbing, or edema. ABDOMEN: Soft, non-tender, positive bowel sounds. He does have chronic contractures in his feet and hands due to advanced MS. BACK: No CVA or vertebral tenderness. NEUROLOGIC: He is essentially aphasic. Will answer just barely yes/no answers, weak but no obvious cranial nerves II through XII deficit. His left hand is notably weaker than the right. He denies that he has to only pick his left hand up. He is oriented to himself but not time or location. SKIN: Warm, pink and dry. LABORATORY: White count 19,700, hemoglobin 13, hematocrit 37.9, platelet count 201,000. Differential does show a left shift. Coagulation studies : PT 11.1, PTT 31.7. Blood gas analysis showed pH of 7.46 with bicarb of 19, C02 of 27, P02 of 104, oxygen saturation 96% on nasal cannula. Chemistries showed mild hyponatremia with sodium 129, anion gap elevated at 18 with BUN of 15, creatinine 1.07, calcium 8.0, total bilirubin showing slight elevation at 1.6. AST and ALT both within normal limits. Troponin was <0.02. Urinalysis with large blood, large amount of leukoesterase, microscopic revealing obscured RBCs, epithelials and bacteria due to WBCs which were too numerous to count. MICROBIOLOGY: Urine cultures pending. Covid swab was negative and blood cultures were pending. RADIOLOGY: Chest x-ray essentially without any acute findings. ASSESSMENT: 1. Sepsis secondary to urinary tract infection with history of chronic Gonzalez. 2. Acute mental status change secondary to metabolic encephalopathy due to #1. 3. Hyponatremia, moderate. 4, Hypobilirubinemia likely due to some dehydration. 5. History of cerebrovascular accident with residual left-sided weakness. 6. Benign prostatic hypertrophy with need for chronic Gonzalez placement. 7. Chronic constipation. 8. Multiple sclerosis. 9. Depression. PLAN: Mr. Phillips is going to be admitted for treatment of sepsis due to a urinary tract infection. His Gonzalez was exchanged in the Emergency Room prior to admission. He was given Cefepime initially along with Ceftriaxone. Given his history and where he came from, I am going to go ahead and start him some Cefepime along with some vancomycin until we have cultures back. Once those cultures are available we will target antibiotic therapy as appropriate. We will resume his home medications once those have been updated and verified. I would anticipate his length of stay to be at least 2 to 3 days. He will be on Lovenox per protocol for DVT protection as well as gastric protection with Protonix. We will go ahead an start him on Align to hopefully prevent diarrhea associated with antibiotics and given the fact that he just finished a round of antibiotics, I think it is warranted that he needs to be started on coverage for probably Pseudomonas proteus. We will monitor his blood cultures. In regard to the tachycardia, we will go ahead and give him some fluids which I think this is probably related to mild pain and underlying sepsis. Hopefully, we will be able to transition him to outpatient management in the next 2 to 3 days. Until then, we will continue to monitor and treat as needed. #[id number] [facility]
[2020-10-23] MEDS ORDERED: VANCOMYCIN HCL INJ 1,500 MG in SODIUM CHLORIDE 0.9% 500ML 500 ML IVPB ONE (22:08)
[2020-10-23] MEDS ORDERED: ONDANSETRON INJ 4 MG/2 ML VIAL IV PRN (22:09)
[2020-10-23] MEDS ORDERED: IV SET AND CAP CHANGE INJ INJ SCH (22:30)
[2020-10-23] MEDS ORDERED: VANCOMYCIN HCL INJ 1,000 MG VIAL IVPB ONE (22:50)
[2020-10-23] MEDS ORDERED: VANCOMYCIN HCL INJ 500 MG VIAL ONE (22:51)
[2020-10-23] MEDS ORDERED: SODIUM CHLORIDE 0.9% 500ML 500 ML ONE (22:51)
[2020-10-23] MEDS: ENOXAPARIN SODIUM 40 MG/0.4 ML SYG SUBCU SCH (22:52)
[2020-10-23] MEDS: diphenhydrAMINE HCL 25 MG CAP PO PRN (22:56)
[2020-10-23] MEDS: IBUPROFEN 200 MG TAB PO PRN (22:56)
[2020-10-24] MEDS ORDERED: SODIUM CHL 0.9% 100ML MINI-BAG 100 ML IVPB ONE ×2 (05:23→16:45)
[2020-10-24] MEDS ORDERED: CEFEPIME 2 GM VIAL ONE ×2 (05:23→16:45)
[2020-10-24] MEDS: CEFEPIME 2 GM in SODIUM CHL 0.9% 100ML MINI-BAG 100 ML IVPB SCH ×2 (05:40→17:07)
[2020-10-24] MEDS: PANTOPRAZOLE SODIUM IV 40 MG VIAL IV SCH (06:04)
[2020-10-24] MEDS ORDERED: VANCOMYCIN PER PHARMACY IVPB SCH (08:00)
[2020-10-24] MEDS ORDERED: POLYETHYLENE GLYCOL 3350 17 GM PCKT PO PRN (08:15)
[2020-10-24] MEDS ORDERED: MAGNESIUM HYDROXIDE 30 ML UD PO PRN (08:15)
[2020-10-24] MEDS ORDERED: HYDROcodone 10MG/APAP 325MG 1 EA TAB PO PRN (08:15)
[2020-10-24] MEDS ORDERED: [UNRECOGNIZED DRUG - REMARK] PO PRN (08:15)
[2020-10-24] MEDS ORDERED: CELECOXIB 100 MG CAP ONE (09:16)
[2020-10-24] MEDS ORDERED: CETIRIZINE HCL 10 MG TAB PO ONE (09:16)
[2020-10-24] MEDS: NON-FORMULARY MEDICATION 1 EA MIS (Celecoxib [Celebrex] 200 MG) PO SCH (09:33)
[2020-10-24] MEDS: BACLOFEN 10 MG TAB PO SCH ×4 (09:33→20:29)
[2020-10-24] MEDS: TAMSULOSIN 0.4 MG CAP PO SCH (09:34)
[2020-10-24] MEDS: DOXEPIN HCL 3 MG PO SCH (09:34)
[2020-10-24] MEDS: FUROSEMIDE 40 MG TAB PO SCH (09:34)
[2020-10-24] MEDS: FOLIC ACID 1 MG TAB PO SCH (09:34)
[2020-10-24] MEDS: SOLIFENACIN SUCCINATE 5 MG PO SCH (09:35)
[2020-10-24] MEDS: [UNRECOGNIZED DRUG - REMARK] PO SCH (09:35)
[2020-10-24] MEDS: HYDROcodone 10MG/APAP 325MG 1 EA TAB PO SCH (09:55)
[2020-10-24] MEDS: VANCOMYCIN HCL INJ 1,000 MG, VANCOMYCIN HCL INJ 500 MG in SODIUM CHLORIDE 0.9% 250ML 25... IVPB SCH ×2 (10:44→21:54)
[2020-10-24] MEDS ORDERED: SODIUM CHLORIDE 0.9% 1000ML 1,000 ML IVS ONE (12:03)
[2020-10-24] MEDS ORDERED: KETOROLAC TROMETHAMINE INJ 30 MG/ML VIAL IV ONE (12:04)
[2020-10-24] MEDS ORDERED: KCL 20 MEQ/NS 1,000 ML IVS ONE (12:45)
--- NOTE | 2020-10-24 16:16 | PN ---
SUPERVISING PHYSICIAN: Luigi Lucas MD DATE: 10/24/20 SUBJECTIVE: The patient is much more alert this morning. He saw me come in, he seems to be back at his baseline level status initially. His urine is clearing up fairly well at this point. OBJECTIVE: VITAL SIGNS: Still tachycardiac but running a low-grade fever at 99.7, pulse 123, blood pressure 97/68, respirations 18, oxygen saturation 95% on 2 liter nasal cannula. GENERAL: The patient is alert, he is resting and looks to be in no distress. CHEST: Lung sounds are fairly clear, just diminished towards the bases. HEART: Regular rate but hosing tachycardia on the monitor. ABDOMEN: Soft, non-tender, positive bowel sounds. EXTREMITIES: No acute changes from admission, no cyanosis, clubbing, or edema. NEUROLOGIC: Alert to himself and location. He seems to be returning to baseline mental status. SKIN: Warm, pink and dry. LABORATORY: Sodium 133, carbon dioxide a little low at 17, potassium normal at 3.6. Creatinine 1.03. Bilirubin is down to 1.2. All other functions remain within normal limits. Calcium 7.7 but corrected to 8 for albumin level of 2.5. MICROBIOLOGY: Blood cultures are pending. Urine culture pending. RADIOLOGY: There are no additional radiographic studies today. ASSESSMENT: 1. Sepsis secondary to urinary tract infection with history of chronic Gonzalez. 2. Acute mental status change secondary to metabolic encephalopathy due to #1. 3. Hyponatremia, moderate. 4, Hypobilirubinemia likely due to some dehydration. 5. History of cerebrovascular accident with residual left-sided weakness. 6. Benign prostatic hypertrophy with need for chronic Gonzalez placement. 7. Chronic constipation. 8. Multiple sclerosis. 9. Depression. PLAN: Will continue with Cefepime and vancomycin combination until we have the cultures back. In regard to his tachycardia, I think this may be pain related and we will go ahead and give him a single dose of Toradol as well as he may still be a little dehydrated, I am going to give him a liter bolus of saline and will followup with some fluid, D5 normal saline with 20 of potassium running at 80 an hour. Once we have cultures back, will certainly target antibiotic therapy as appropriate. Hopefully, we will be able to transition him to outpatient management in the next 24-48 hours. Until then, we will continue to monitor and treat as needed. #[id number] [facility]
[2020-10-24] MEDS ORDERED: ENOXAPARIN SODIUM 40 MG/0.4 ML SYG SUBCU ONE (19:13)
[2020-10-24] MEDS ORDERED: IBUPROFEN 200 MG TAB ONE (20:04)
[2020-10-24] MEDS ORDERED: diphenhydrAMINE HCL 25 MG CAP ONE (20:04)
[2020-10-24] MEDS: IBUPROFEN 200 MG TAB PO PRN (20:28)
[2020-10-24] MEDS: ENOXAPARIN SODIUM 40 MG/0.4 ML SYG SUBCU SCH (20:28)
[2020-10-24] MEDS: diphenhydrAMINE HCL 25 MG CAP PO PRN (20:28)
[2020-10-25] MEDS ORDERED: diphenhydrAMINE HCL 25 MG CAP ONE (00:27)
[2020-10-25] MEDS ORDERED: ACETAMINOPHEN 325 MG TAB ONE ×2 (00:27→20:47)
[2020-10-25] MEDS: ACETAMINOPHEN 325 MG TAB PO PRN ×2 (00:27→21:51)
[2020-10-25] MEDS: diphenhydrAMINE HCL 25 MG CAP PO PRN (00:28)
[2020-10-25] MEDS ORDERED: CEFEPIME 2 GM VIAL ONE ×2 (05:38→13:48)
[2020-10-25] MEDS ORDERED: PANTOPRAZOLE SODIUM IV 40 MG VIAL ONE (05:38)
[2020-10-25] MEDS: CEFEPIME 2 GM in SODIUM CHL 0.9% 100ML MINI-BAG 100 ML IVPB SCH ×2 (05:39→17:40)
[2020-10-25] MEDS ORDERED: SODIUM CHL 0.9% 100ML MINI-BAG 100 ML IVPB ONE (05:39)
[2020-10-25] MEDS: PANTOPRAZOLE SODIUM IV 40 MG VIAL IV SCH (06:21)
[2020-10-25] MEDS ORDERED: HYDROcodone 10MG/APAP 325MG 1 EA TAB ONE ×3 (08:01→20:33)
[2020-10-25] MEDS ORDERED: FUROSEMIDE 40 MG TAB ONE (08:02)
[2020-10-25] MEDS ORDERED: FOLIC ACID 1 MG TAB ONE (08:02)
[2020-10-25] MEDS ORDERED: BACLOFEN 10 MG TAB ONE ×3 (08:02→19:48)
[2020-10-25] MEDS ORDERED: TAMSULOSIN 0.4 MG CAP ONE (08:02)
[2020-10-25] MEDS ORDERED: CELECOXIB 100 MG CAP ONE ×2 (08:02→09:11)
[2020-10-25] MEDS ORDERED: CETIRIZINE HCL 10 MG TAB PO ONE (08:02)
[2020-10-25] MEDS: DOXEPIN HCL 3 MG PO SCH (09:08)
[2020-10-25] MEDS: HYDROcodone 10MG/APAP 325MG 1 EA TAB PO SCH (09:16)
[2020-10-25] MEDS: BACLOFEN 10 MG TAB PO SCH ×3 (09:17→20:11)
[2020-10-25] MEDS: FUROSEMIDE 40 MG TAB PO SCH (09:17)
[2020-10-25] MEDS: TAMSULOSIN 0.4 MG CAP PO SCH (09:17)
[2020-10-25] MEDS: NON-FORMULARY MEDICATION 1 EA MIS (Celecoxib [Celebrex] 200 MG) PO SCH (09:18)
[2020-10-25] MEDS: [UNRECOGNIZED DRUG - REMARK] PO SCH (09:18)
[2020-10-25] MEDS: FOLIC ACID 1 MG TAB PO SCH (09:19)
[2020-10-25] MEDS: SOLIFENACIN SUCCINATE 5 MG PO SCH (09:19)
[2020-10-25] MEDS: VANCOMYCIN HCL INJ 1,000 MG, VANCOMYCIN HCL INJ 500 MG in SODIUM CHLORIDE 0.9% 250ML 25... IVPB SCH ×2 (11:00→20:12)
[2020-10-25] MEDS ORDERED: KETOROLAC TROMETHAMINE INJ 30 MG/ML VIAL IV ONE (11:22)
[2020-10-25] MEDS ORDERED: SODIUM CHL 0.9% 50ML MIN-BAG+ 50 ML IVPB ONE (13:48)
[2020-10-25] MEDS ORDERED: KCL 20MEQ/D5NS 1,000 ML IVS ONE (15:21)
[2020-10-25] MEDS: KCL 20MEQ/D5NS 1,000 ML IVS PRN (15:28)
[2020-10-25] MEDS ORDERED: ENOXAPARIN SODIUM 40 MG/0.4 ML SYG SUBCU ONE (19:48)
[2020-10-25] MEDS ORDERED: VANCOMYCIN HCL INJ 500 MG VIAL ONE (19:50)
[2020-10-25] MEDS: ENOXAPARIN SODIUM 40 MG/0.4 ML SYG SUBCU SCH (20:11)
[2020-10-26] MEDS ORDERED: SODIUM CHL 0.9% 100ML MINI-BAG 100 ML IVPB ONE (03:29)
[2020-10-26] MEDS ORDERED: KCL 20MEQ/D5W 0 ML IVS ONE (03:29)
[2020-10-26] MEDS ORDERED: PANTOPRAZOLE SODIUM IV 40 MG VIAL ONE (03:29)
[2020-10-26] MEDS ORDERED: CEFEPIME 2 GM VIAL ONE (03:29)
[2020-10-26] MEDS ORDERED: MAGNESIUM HYDROXIDE 30 ML UD ONE (03:54)
[2020-10-26] MEDS ORDERED: KCL 20MEQ/D5NS 1,000 ML IVS ONE (03:56)
[2020-10-26] MEDS: KCL 20MEQ/D5NS 1,000 ML IVS PRN (03:57)
[2020-10-26] MEDS: PANTOPRAZOLE SODIUM IV 40 MG VIAL IV SCH (05:41)
[2020-10-26] MEDS: CEFEPIME 2 GM in SODIUM CHL 0.9% 100ML MINI-BAG 100 ML IVPB SCH ×2 (05:41→17:04)
[2020-10-26] MEDS ORDERED: HYDROcodone 10MG/APAP 325MG 1 EA TAB ONE (07:09)
[2020-10-26] MEDS ORDERED: BACLOFEN 10 MG TAB ONE (07:10)
[2020-10-26] MEDS ORDERED: CELECOXIB 100 MG CAP ONE (07:10)
[2020-10-26] MEDS ORDERED: FOLIC ACID 1 MG TAB ONE (07:10)
[2020-10-26] MEDS ORDERED: TAMSULOSIN 0.4 MG CAP ONE (07:10)
[2020-10-26] MEDS ORDERED: CETIRIZINE HCL 10 MG TAB PO ONE (07:10)
[2020-10-26] MEDS ORDERED: FUROSEMIDE 40 MG TAB ONE (07:10)
--- NOTE | 2020-10-26 07:51 | PN ---
DATE: SUPERVISING PHYSICIAN: Luigi Lucas MD DATE: 10/25/20 SUBJECTIVE: The patient seems to be doing okay. He is still having some pain in his left side which is chronic, he said the Toradol was helping. He has had no nausea or vomiting or significant diarrhea. His vital signs remain stable. OBJECTIVE: VITAL SIGNS: Temperature 98.8, pulse 108, blood pressure 111/68, respirations 18, oxygen saturation 94% on room air. GENERAL: The patient is alert, he is resting and looks to be in no distress. CHEST: Lung sounds are fairly clear, just diminished towards the bases. HEART: Regular rate but hosing tachycardia on the monitor. ABDOMEN: Soft, non-tender, positive bowel sounds. EXTREMITIES: No acute changes from admission, no cyanosis, clubbing, or edema. NEUROLOGIC: Alert to himself and location. He seems to be returning to baseline mental status. SKIN: Warm, pink and dry. LABORATORY: White count down to 12,100, hemoglobin 11.1, hematocrit 32.7, platelet count 165,000, differential does show a left shift. Chemistries show potassium 3.4, otherwise electrolytes within normal limits. Creatinine 1.02, calcium 7.8. MICROBIOLOGY: Urine culture shows gram negative rosmery. Blood cultures remain negative at 38 hours. RADIOLOGY: There are no additional radiographic studies today. ASSESSMENT: 1. Sepsis secondary to urinary tract infection gram negative rosmery with culture pending. 2. Acute mental status change due to metabolic encephalopathy due to #1, improving with treatment. 3. Hyponatremia, resolved. 4, Hypobilirubinemia likely due to some dehydration. 5. History of cerebrovascular accident with residual left-sided weakness. 6. Benign prostatic hypertrophy with need for chronic Gonzalez placement. 7. Chronic constipation. 8. Multiple sclerosis. 9. Depression. PLAN: Will continue with current antibiotic coverage with Cefepime and vancomycin combination until we have the final cultures back. In regard to his tachycardia, he is improving with fluids and pain control. Will continue to monitor and treat as needed. Will give him another dose of Toradol and watch his renal function closely. Again, once we have full sensitivity, we will target antibiotic therapy as appropriate. Hopefully we will be able to transfer him back to [facility] within the next 48 hours. Until then, we will continue to monitor and treat as needed.. #[id number] [facility]
[2020-10-26] MEDS: FOLIC ACID 1 MG TAB PO SCH (08:11)
[2020-10-26] MEDS: BACLOFEN 10 MG TAB PO SCH ×2 (08:11→16:05)
[2020-10-26] MEDS: FUROSEMIDE 40 MG TAB PO SCH (08:11)
[2020-10-26] MEDS: HYDROcodone 10MG/APAP 325MG 1 EA TAB PO SCH (08:12)
[2020-10-26] MEDS: NON-FORMULARY MEDICATION 1 EA MIS (Celecoxib [Celebrex] 200 MG) PO SCH (08:12)
[2020-10-26] MEDS: DOXEPIN HCL 3 MG PO SCH (08:13)
[2020-10-26] MEDS: TAMSULOSIN 0.4 MG CAP PO SCH (08:13)
[2020-10-26] MEDS: [UNRECOGNIZED DRUG - REMARK] PO SCH (08:13)
[2020-10-26] MEDS: SOLIFENACIN SUCCINATE 5 MG PO SCH (08:14)
[2020-10-26] MEDS: VANCOMYCIN HCL INJ 1,000 MG, VANCOMYCIN HCL INJ 500 MG in SODIUM CHLORIDE 0.9% 250ML 25... IVPB SCH ×2 (10:43→11:04)
--- NOTE | 2020-10-26 19:36 | RAD ---
EXAM DESCRIPTION: XR Chest,1 View CLINICAL HISTORY: PICC placement verification TECHNIQUE: Single frontal view of the chest is submitted. COMPARISON: 10/23/2020 FINDINGS: Heart: The cardiothoracic silhouette is within normal limits. Lungs: Patchy bibasilar opacities similar to the prior. Mediastinum: Thoracic aortic atherosclerosis. Pleura: No appreciable effusion. No pneumothorax. Bones: Intact Upper abdomen: Unremarkable Other: Interval placement of a right upper extremity PICC. The tip projects over the mid superior vena cava. IMPRESSION: 1. Right upper extremity PICC tip projects over the mid superior vena cava. 2. Patchy bibasilar opacities (atelectasis and/or infiltrate), similar to the prior. Electronically signed by: Beatriz Rosado MD 10/26/2020 7:34 PM [facility]
[2020-10-26 20:06] VITALS: BP 158/77; TEMP 98.4; O2SAT 99
[2020-10-27] MEDS ORDERED: CELECOXIB 100 MG CAP PO SCH (07:30)
[2020-10-27] MEDS ORDERED: CETIRIZINE HCL 10 MG TAB PO SCH (09:00)
[2020-10-27] MEDS ORDERED: TOLTERODINE TARTRATE ER 4 MG CAP PO SCH (09:00)
--- NOTE | 2020-10-27 09:56 | DS ---
SUPERVISING PHYSICIAN: Fuad Knapp MD ADMISSION DIAGNOSES: 1. Sepsis secondary to urinary tract infection with history of chronic Gonzalez. 2. Acute mental status change secondary to metabolic encephalopathy due to #1. 3. Hyponatremia, moderate. 4, Hypobilirubinemia likely due to some dehydration. 5. History of cerebrovascular accident with residual left-sided weakness. 6. Benign prostatic hypertrophy with need for chronic Gonzalez placement. 7. Chronic constipation. 8. Multiple sclerosis. 9. Depression. DISCHARGE DIAGNOSES: 1. Sepsis secondary to urinary tract infection due to Pseudomonas aeruginosa showing sensitive to Cefepime. 2. Acute mental status change due to metabolic encephalopathy, resolved with treatment 3. Hyponatremia, now resolved. 4, Hypobilirubinemia returning to baseline levels secondary to dehydration. 5. History of cerebrovascular accident with residual left-sided weakness. 6. Benign prostatic hypertrophy with need for chronic Gonzalez placement. 7. Chronic constipation. 8. Multiple sclerosis. 9. Depression. REASON FOR HOSPITALIZATION: Mr. Phillips is a 60-year-old, male patient who presented from [facility] to the Emergency Room supposedly with acute mental status change for over 6 hours. Review of his records show he was recently treated for a urinary tract infection and finished that treatment several days ago. On arrival to the Emergency Room, the patient was noted to be with a GCS of 9. His Gonzalez was in place which is chronic, but noted there was some thick purulent urine in the Gonzalez collecting system. The system was changed out including the indwelling Gonzalez. He was started on fluids, labs were collected and a repeat of a urinalysis with Gonzalez placement showed a microscopic with too numerous to count WBCs, a large amount of leukoesterase, large amount of blood. His white count was elevated at 19,700 with a left shift. Blood gas analysis showed a P02 of 104, pH of 7.46, oxygen saturation 90% on nasal cannula. His chemistries showed a sodium of 129 with anon gap elevated at 18.3, creatinine 1.07, bilirubin was slightly elevated at 1.6. Liver functions all within normal limits. Urine culture was submitted, blood cultures were drawn. A chest x-ray showed no significant change compared to previous on 10/29/17, just increased density in the right lung likely related to volume loss and appearance is similar to previous exams. Nasal swab for Covid was negative. Vital signs in the Emergency Room show he was afebrile with temperature of 98.2, pulse 127, blood pressure 107/60, respirations 20, oxygen saturation 95% on 2 liter nasal cannula. Given the recent treatment for urinary tract infection and findings on urinalysis along with findings on CBC and his vital signs indicating likely early sepsis secondary to urinary tract infection, he was started on antibiotics with Ceftriaxone and Cefepime. His lactic acid was normal initially at 1.2. He is now going to be admitted for sepsis secondary to urinary tract infection due to chronic Gonzalez catheter. He is admitted in stable condition. LABORATORY: WBC 8,400, down from initial admission of 19,700, hemoglobin stable at 10.9m, hematocrit 31.6, platelet count 149,000. Differential did show a left shift. Coagulation studies showed PT/PTT within normal limits. Chemistries at discharge showed potassium a little low at 3.2, otherwise, electrolytes were within normal limits. Creatinine 0.86, calcium 7.8. Liver functions within normal limits. Urinalysis on admission prior to changing the Gonzalez catheter showed a large amount of leukoesterase with microscopic showing WBC too numerous to count, epithelials and bacteria were obscured by WBCs. MICROBIOLOGY: Final urine culture showed Pseudomonas aeruginosa that was sensitive to Cefepime but resistant Cefazolin and Levaquin and Ciprofloxacin. Blood cultures remained negative at 48 hours. His nasal swab for Covid was negative. RADIOLOGY: Chest x-ray on admission per radiology interpretation showed scoliosis and evaluation of the right diaphragm resulting in lung loss in the right, slight increased density in the right lower lobe likely related to volume loss. No significant change compared to previous exam. HOSPITAL COURSE: Mr. Phillips was admitted for sepsis secondary to Pseudomonas aeruginosa urinary tract infection. He was started on Cefepime and vancomycin given he does reside in a long-term care facility. He did respond well to treatment, ultimately final culture did reveal that he had a sensitive Pseudomonas to Cefepime. On date of discharge, he had improved significantly and clinically well enough to continue with outpatient management. His blood cultures have been negative. Vital signs were showing to be stable on date of discharge. Temperature was 98.4, pulse 74, blood pressure 116/71, respirations 18, oxygen saturation 95% on room air at rest. PLAN: Mr. Phillips was discharged back to [facility]. A PICC line was placed to continue with IV antibiotics with Cefepime 2 grams every 12 hours for a total of 10-day treatment course based off sensitivity report. He was to resume all other medication as directed. He was to followup with Dr. Lucas within 7 to 10 days or sooner if needed. He was instructed to return to the Emergency Department should he have any concerning symptoms. Diet was to continue with normal diet as tolerated. Activities: To increase activity level as tolerated. DISCHARGE MEDICATIONS: Cefepime 2 grams every 12 hours via PICC line times 10 days. All other medications to resume as prior to admission. DISPOSITION: Patient discharged back to [facility]. CONDITION ON DISCHARGE: Stable and improved. #[id number] [facility]
== END 2020-10-26 20:08 | DRG 698 ==
LOC: ER 16:18 → MS 21:37 → OBSVTOIN 21:37
PROVIDERS: ADMIT Nurse Practitioner Family; ATTEND Nurse Practitioner Family
PROC: 02HV33Z Insertion of Infusion Device into Superior Vena Cava, Percutaneous Approach (ICD-10-PCS; principal; 2020-10-26)
PROC: B548ZZA Ultrasonography of Superior Vena Cava, Guidance (ICD-10-PCS; 2020-10-26)
DX: T83.511A Infection and inflammatory reaction due to indwelling urethral catheter, initial encounter (principal); A41.52 Sepsis due to Pseudomonas; G93.41 Metabolic encephalopathy; E87.1 Hypo-osmolality and hyponatremia; I69.354 Hemiplegia and hemiparesis following cerebral infarction affecting left non-dominant side; N39.0 Urinary tract infection, site not specified; E86.0 Dehydration; N40.0 Benign prostatic hyperplasia without lower urinary tract symptoms; K59.09 Other constipation; G35 Multiple sclerosis; F32.9 Major depressive disorder, single episode, unspecified; I50.9 Heart failure, unspecified; R40.2422 Glasgow coma scale score 9-12, at arrival to emergency department; Z88.2 Allergy status to sulfonamides; Z88.3 Allergy status to other anti-infective agents; Z88.8 Allergy status to other drugs, medicaments and biological substances; Z79.1 Long term (current) use of non-steroidal anti-inflammatories (NSAID); Z79.891 Long term (current) use of opiate analgesic; Z79.899 Other long term (current) drug therapy; Z66 Do not resuscitate; Y84.6 Urinary catheterization as the cause of abnormal reaction of the patient, or of later complication, without mention of misadventure at the time of the procedure; Y92.129 Unspecified place in nursing home as the place of occurrence of the external cause